=== PATIENT | male | born 1945 | race Caucasian/White ===

== ENCOUNTER → 2016-08-31 | Outpatient (REF) | payer OTHER | LOC: M SFHCPLAZ 13:30 | PROVIDERS: ATTEND Internal Medicine Infectious Disease | DX: B20 Human immunodeficiency virus [HIV] disease (principal); E78.00 Pure hypercholesterolemia, unspecified; N40.1 Benign prostatic hyperplasia with lower urinary tract symptoms ==

== ENCOUNTER 2017-02-07 14:19 | Inpatient (IN) | payer MEDICARE, OTHER ==
[~2017-02-07] VITALS: Ht 172.7 cm; Wt 123.8 kg
[2017-02-07] MEDS ORDERED: GABA-282 PO (14:58)
[2017-02-07] MEDS ORDERED: LISI-542 PO (14:58)
[2017-02-07] MEDS ORDERED: ATEN25TA PO (14:58)
[2017-02-07] MEDS ORDERED: ATOR40TA75 PO (14:58)
[2017-02-07] MEDS ORDERED: ALBU17IN INH (14:58)
[2017-02-07] MEDS ORDERED: ATRIPLA PO (14:58)
[2017-02-07] MEDS ORDERED: TAMSULOSIN (14:58)
[2017-02-07] MEDS ORDERED: ACET30TAB PO (14:58)
[2017-02-07] MEDS ORDERED: SPIR25TA2 PO (14:58)
[2017-02-07] MEDS ORDERED: ASPI325T24 PO (14:58)
[2017-02-07] MEDS ORDERED: ATRIPLA (14:58)
[2017-02-07] MEDS ORDERED: NORCO, ANEXSIA 5/325MG TABLET (HYDROcodone/ACETAMINOPHEN) PO ONE (18:30)
[2017-02-07] MEDS ORDERED: METHOCARBAMOL 500 MG TAB PO ONE (18:30)
[2017-02-07 19:11] LABS: BASO # 0.1 10^3/uL (0.0-0.2); BASO % 0.6 % (0.0-1.0); EOS # 0.1 10^3/uL (0.0-0.50); EOS % 0.9 % (0.0-3.0); IMMATURE GRANULOCYTE % 0.8 % (0-0); LYMPH # 1.5 10^3/uL (1.5-4.5); LYMPH % 14.1 % (24.0-44.0); MEAN CORPUSCULAR HEMOGLOBIN 30.2 pg (27.0-33.0); MEAN CORPUSCULAR HGB CONC 33.3 g/dl (32.0-36.5); MEAN CORPUSCULAR VOLUME 90.7 fl (80.0-96.0); MONO % 9.5 % (0.0-5.0); NEUTROPHILS # 7.6 10^3/uL (1.8-7.7); NEUTROPHILS % 74.1 % (36.0-66.0); PLATELET COUNT, AUTOMATED 202 10^3/uL (150-450); RED CELL DISTRIBUTION WIDTH 14.6 % (11.5-14.5); WHITE BLOOD COUNT 10.3 10^3/uL (4.0-10.0)
[2017-02-07 19:12] LABS: ADD MORPHOLOGY? NO
[2017-02-07 19:41] LABS: ALBUMIN 4.1 GM/DL (3.2-5.2); ALBUMIN/GLOBULIN RATIO 0.93 (1.00-1.93); BILIRUBIN,DIRECT 0.4 MG/DL (0.0-0.2); BILIRUBIN,TOTAL 1.2 MG/DL (0.2-1.0); CALCIUM LEVEL 9.4 MG/DL (8.8-10.2); CREATININE FOR GFR 1.69 MG/DL (0.70-1.30); GLOMERULAR FILTRATION RATE 42.6 (>42); TOTAL PROTEIN 8.5 GM/DL (6.4-8.2)
--- NOTE | 2017-02-07 20:30 | REPUSA ---
CLINICAL HISTORY: Lumbar pain. TECHNIQUE: Multiple axial, coronal, sagittal CT images were obtained through the lumbar spine withou t IV contrast material. COMMENTS: The paraspinal soft tissues are unremarkable. There are no lytic or blastic lesions. There is grade-1 anterolisthesis of L5 over S1 measures 5 mm. There is severe multilevel spondylosis present involving all lumbar levels. Vacuum disc phenomenon is noted at L2-L3, L3-L4 and L5-S1. An terior and posterior marginal osteophytosis is seen. Dextroscoliosis is noted apex at L1-L2. There is grade-1 retrolisthesis of L3 over L4 measures 5 mm. There are multiple bilateral renal cysts pres ent, the largest located in the lower pole of the left kidney measuring 5 cm. There is a 3.5 mm calc ulus noted in the superior pole of the left kidney. The patient is status post cholecystectomy. Marija luation of individual levels present the following: L5-S1, broad based herniated disc noted with spurring. There is severe bilateral foraminal stenosis. Compression of bilateral L5 nerve roots. Canal is mildly to moderately stenotic. L4-L5, broad based disc osteophyte complex is present. There is moderate to severe bilateral foramin al stenosis and mild central canal stenosis. Hypertrophic facet disease and ligamentum flavum hypert rophy contribute. L3-L4, broad based disc osteophyte complex is noted. There is severe bilateral foraminal stenosis. There is compression of bilateral L3 nerve roots. L2-L3, broad based disc osteophyte complex is noted. There is severe bilateral foraminal stenosis. There is compression of bilateral L2 nerve roots. L1-L2, disc osteophyte complex is present. Both foramina are narrowed. IMPRESSION: 1. Grade-1 anterolisthesis of L5 over S1 measures 5 mm. 2. Advanced multilevel spondylosis. 3. Grade-1 retrolisthesis of L3 over L4 measures 5 mm. 4. Multiple bilateral renal cysts. 5. 3.5 mm calculus in the superior pole of the left kidney. 6. Status post cholecystectomy. 7. L5-S1, broad based herniated disc noted with spurring. Severe bilateral foraminal stenosis. Com pression of bilateral L5 nerve roots. Canal is mildly to moderately stenotic. 8. L4-L5, broad based disc osteophyte complex. Moderate to severe bilateral foraminal stenosis and mild central canal stenosis. Hypertrophic facet disease and ligamentum flavum hypertrophy contribute . 9. L3-L4, broad based disc osteophyte complex. Severe bilateral foraminal stenosis. Compression of bilateral L3 nerve roots. 10. L2-L3, broad based disc osteophyte complex. Severe bilateral foraminal stenosis. Compression o f bilateral L2 nerve roots. 11. L1-L2, disc osteophyte complex. Both foramina are narrowed.
[2017-02-07] MEDS ORDERED: CO-QCAP PO (21:51)
[2017-02-07] MEDS ORDERED: FLOM5CAP PO (21:51)
[2017-02-07] MEDS ORDERED: VITMTA PO (21:51)
[2017-02-07] MEDS ORDERED: SYMB16INH INH (21:51)
[2017-02-07] MEDS ORDERED: PATIENT COMMENT (21:52)
[2017-02-08] MEDS ORDERED: ONDANSETRON 4 MG TAB (S0181) PO PRN (00:30)
[2017-02-08] MEDS ORDERED: ALBUTEROL 90 MCG/ACT 8GM HFA INHALER INH PRN (00:30)
--- NOTE | 2017-02-08 01:02 | HPEPDOC ---
General Date of Admission 02-08-17 Primary Care Physician: Becka Lord MD Attending Physician: RAYMOND SHOEMAKER MD Chief Complaint The patient is a 71-year-old male admitted with a reason for visit of Back Pain. Source: Patient Exam Limitations: No limitations Timing/Duration: Day(s) (3-4) Severity: Moderate History of Present Illness 71 y/o male with past medical history of [place] x2 in the with cardiac cath but no stent placement as per pt., CABG in 2011, HIV followed by local ID, HTN, peripheral nephropathy and heart failure as per pt. who presents today with a 3 day history of severe low back and left hip/thigh pain, 11 on pain scale, worsened with ambulation. The pt. states he has not had any recent trauma to account for the pain and states it developed quickly, although he states he has had it in the past about one year prior. Denies incontinence of urine or bowel nor numbness in his groin area, no headche or blurred vision and no dizzyness, denies SOB, CP or racing heart. No abdominal pain or n/v either. He states he contracted HIV through sexual contact, denies alcohol or drug use. He also tells me he has chronic numbness in his feet b/l and thinks he was prescribed gabapentin for this. Home Medications Scheduled (Co-Q 10 [place]-3 Fish Oil) 1 Cap Cap, 1 CAP PO QHS, (Reported) Aspirin (Aspirin EC) 325 Mg Tabec, 325 MG PO DAILY, (Reported) Atenolol (Atenolol) 25 Mg Tab, 25 MG PO DAILY, (Reported) Atorvastatin Calcium (Atorvastatin Calcium) 40 Mg Tab, 40 MG PO QHS, (Reported) Budesonide/Formoterol (Symbicort 160-4.5 Mcg/Act) 60 Puff/Inhaler Aers, 2 PUFF INH BID, (Reported) Efavirenz/Emtricitabine/Tenofi (Atripla 600-200-300 mg) 1 Tab Tab, 1 TAB PO QHS, (Reported) Gabapentin (Gabapentin) 300 Mg Cap, 300 MG PO TID, (Reported) Lisinopril (Lisinopril) 5 Mg Tab, 5 MG PO DAILY, (Reported) Multivitamins *[facility] STOCKED* (Thera M Plus *[facility] STOCKED*) 1 Tab Tab, 1 TAB PO DAILY, (Reported) Spironolactone (Spironolactone) 25 Mg Tab, 12.5 MG PO DAILY, (Reported) Tamsulosin Hydrochloride (Flomax) 0.4 Mg Cap, 0.4 MG PO DAILY, (Reported) Scheduled PRN Acetaminophen/Codeine (Tylenol/Codeine #3) Tab, 1 TAB PO BID PRN for PAIN, ( Reported) WAS TOLD TO STOP TAKING Albuterol Sulfate (Ventolin Hfa) 200 Puff/8 Gm Aers, 2 PUFF INH Q4H PRN for SHORTNESS OF BREATH, (Reported) Miscellaneous Medications [Patient Comment] , (Reported) ONLY MEDICATIONS TAKEN TODAY WAS GABAPENTIN AND TYLENOL #3. THE REST OF THE ORAL MEDICATIONS HAVEN'T BEEN TAKEN IN 4 DAYS. Allergies Coded Allergies: No Known Drug Allergy (Verified Allergy, Unknown, 08/07/12) Past Medical History Medical History HIV COPD HTN Heart failure [place] x2 in , cardiac cath. CABG SANTOS Surgical History appendectomy cabg cholecystectomy Family History Significant Family History: No pertinent family hx Social History * Smoker: former Smoker Alcohol: Denies Drugs: denies Review of Symptoms Constitutional: Reports: Malaise, Weakness, Fatigue, Denies: Chills, Fever, Night Sweats, Weight Loss Eyes: Denies: Pain, Vision change ENT: Denies: Head Aches Skin: Denies: Rash, Lesions Pulmonary: Denies: Dyspnea, Cough, Pleuritic Chest Pain Cardiovascular: Denies: Chest Pain, Palpitations Gastrointestinal: Denies: Nausea, Vomiting, Abdominal Pain, Diarrhea, Constipation, Melena, Hematochezia Genitourinary: Denies: Dysuria Hematologic: Denies: Bruising Musculoskeletal: Reports: Back Pain, Leg Pain (left hip and anterior thigh) Neurological: Reports: Weakness, Numbness, Denies: Incoordination, Change in speech, Confusion Psych: Reports: Mood Normal Physical Examination General Exam: Positive: Alert, Cooperative, No Acute Distress Eye Exam: Positive: Conjunctiva & lids normal, EOMI, Negative: Sclera icteric, Ptosis ENT Exam: Positive: Atraumatic, Mucous membr. moist/pink, Pharynx Normal, Tongue Midline, Nares Patent, Negative: Pharyngeal Edema Neck Exam: Positive: Supple Chest Exam: Positive: Clear to auscultation, Diminished, Negative: Rales, Rhonchi, Wheezing Heart Exam: Positive: Rate Normal, Normal S1, Normal S2, Negative: Tachycardic, Bradycardic, Gallops, Murmurs, Rubs Telemetry: Positive: No significant arrhythmia Abdomen Exam: Positive: Normal bowel sounds, Soft, Other (umbilical hernia), Negative: Tenderness, Hepatospenomegaly, Mass Extremity Exam: Positive: Other (middle low back pain), Negative: Clubbing, Cyanosis, Edema Neuro Exam: Positive: Normal Speech Psych Exam: Positive: Mental status NL Vital Signs Vital Signs Date Time Temp Pulse Resp B/P (MAP) Pulse Ox O2 Delivery O2 Flow Rate FiO2 02/07/17 21:22 98.8 82 18 128/84 (99) 96 Room Air Laboratory Data Labs 24H Laboratory Tests 2 02/07/17 18:52: Immature Granulocyte % (Auto) 0.8H, White Blood Count 10.3H, Red Blood Count 5.07, Hemoglobin 15.3, Hematocrit 46.0, Mean Corpuscular Volume 90.7, Mean Corpuscular Hemoglobin 30.2, Mean Corpuscular Hemoglobin Concent 33.3, Red Cell Distribution Width 14.6H, Platelet Count 202, Neutrophils (%) (Auto) 74.1H, Lymphocytes (%) (Auto) 14.1L, Monocytes (%) (Auto) 9.5H, Eosinophils (%) (Auto) 0.9, Basophils (%) (Auto) 0.6, Neutrophils # (Auto) 7.6, Lymphocytes # (Auto) 1.5, Monocytes # (Auto) 1.0H, Eosinophils # (Auto) 0.1, Basophils # (Auto) 0.1, Immature Granulocyte # (Auto) 0.1H, Nucleated Red Blood Cells % (auto) 0.0, Anion Gap 10, Glomerular Filtration Rate 42.6, Calcium Level 9.4, Aspartate Amino Transf (AST/SGOT) 50H, Alanine Aminotransferase (ALT/SGPT) 56, Alkaline Phosphatase 142H, Total Bilirubin 1.2H, Direct Bilirubin 0.4H, Total Protein 8.5H, Albumin 4.1, Albumin/Globulin Ratio 0.93L CBC/BMP Laboratory Tests 02/07/17 18:52 Red Blood Count 5.07, Mean Corpuscular Volume 90.7, Mean Corpuscular Hemoglobin 30.2, Mean Corpuscular Hemoglobin Concent 33.3, Red Cell Distribution Width 14.6 H, Neutrophils (%) (Auto) 74.1 H, Lymphocytes (%) (Auto) 14.1 L, Monocytes (%) (Auto) 9.5 H, Eosinophils (%) (Auto) 0.9, Basophils (%) (Auto) 0.6, Neutrophils # (Auto) 7.6, Lymphocytes # (Auto) 1.5, Monocytes # (Auto) 1.0 H, Eosinophils # (Auto) 0.1, Basophils # (Auto) 0.1 Problems (1) Intractable low back pain Status: Acute Response to Treatment: Stable Problem Text: lumbar CT showed IMPRESSION: 1. Grade-1 anterolisthesis of L5 over S1 measures 5 mm. 2. Advanced multilevel spondylosis. 3. Grade-1 retrolisthesis of L3 over L4 measures 5 mm. 4. Multiple bilateral renal cysts. 5. 3.5 mm calculus in the superior pole of the left kidney. 6. Status post cholecystectomy. 7. L5-S1, broad based herniated disc noted with spurring. Severe bilateral foraminal stenosis. Compression of bilateral L5 nerve roots. Canal is mildly to moderately stenotic. 8. L4-L5, broad based disc osteophyte complex. Moderate to severe bilateral foraminal stenosis and mild central canal stenosis. Hypertrophic facet disease and ligamentum flavum hypertrophy contribute. 9. L3-L4, broad based disc osteophyte complex. Severe bilateral foraminal stenosis. Compression of bilateral L3 nerve roots. 10. L2-L3, broad based disc osteophyte complex. Severe bilateral foraminal stenosis. Compression of bilateral L2 nerve roots. 11. L1-L2, disc osteophyte complex. Both foramina are narrowed. MRI without contrast ( in light of JUDAH) is pending will give morphine for pain and likely ortho followup outpt with pain control zofran for n/v (2) Kidney stone Status: Acute Response to Treatment: Stable Problem Text: CT lumbar spine demonstrated 3.5 mm calculus in the superior pole of the left kidney. pt denies pain with urination or blood in urine can consider consulting urology in AM, will leave to discretion of daytime HCP will give gentle fluid hydration and morphine for pain (3) Heart failure Status: Chronic Response to Treatment: Stable Problem Text: cannot seem to find ECHO on file ordered BNP will give gentle fluid hydration and stop if BNP is elevated euvolemic holding diuretic for now (4) HIV (human immunodeficiency virus infection) Status: Chronic Response to Treatment: Stable Problem Text: will continue with home med (5) HTN (hypertension) Status: Chronic Response to Treatment: Stable Problem Text: stable will hold diuretic at this time (6) JUDAH (acute kidney injury) Status: Acute Response to Treatment: Stable Problem Text: seems creatine elevated from baseline 3.5 mm calculus in the superior pole of the left kidney. fluid hydration and pain control (7) COPD (chronic obstructive pulmonary disease) Status: Chronic Response to Treatment: Stable Problem Text: stable c/w home inhalers (8) DVT prophylaxis Status: Acute Response to Treatment: Stable Problem Text: scd teds Plan / VTE VTE Prophylaxis Ordered?: Yes GME ATTESTATION GME ATTESTATION My preceptor for this patient encounter was physically present in the building during the encounter and was fully available. As needed, all aspects of the patient interview, examination, medical decision making process, and medical care plan development were reviewed and approved by the preceptor. Preceptor is aware and concurs with the plan as stated in the body of this note and will attest to such by his/her cosignature. JEANA GOMEZ DO Feb 08, 2017 01:01 THAIS DECKER MD Feb 08, 2017 08:10
[2017-02-08] MEDS: ATORVASTATIN 20 MG TAB PO SCH ×2 (01:32→21:24)
[2017-02-08] MEDS: GABAPENTIN 300 MG CAP PO SCH ×4 (01:32→21:24)
[2017-02-08] MEDS: ATRIPLA TAB PO SCH ×2 (01:32→21:24)
[2017-02-08 02:15] VITALS: BP 143/82
[2017-02-08] MEDS: NS 1,000 ML IV SCH ×3 (02:30→16:46)
[2017-02-08 06:00] VITALS: BP 137/71
[2017-02-08] MEDS: SYMBICORT 160/4.5MCG INHALER 6GM INH SCH ×2 (07:30→18:47)
[2017-02-08] MEDS ORDERED: ASPIRIN ENTERIC 325 MG TAB PO SCH (09:00)
[2017-02-08] MEDS ORDERED: SENOKOT S TAB PO PRN (09:30)
[2017-02-08] MEDS ORDERED: PERCOCET 5MG/325MG TAB PO PRN (09:30)
[2017-02-08] MEDS ORDERED: MOM 30ML SUSPENSION UDC PO PRN (09:30)
[2017-02-08] MEDS ORDERED: PERCOCET 5MG/325MG TAB PO ONE (09:30)
[2017-02-08] MEDS ORDERED: NALOXONE INJ 0.4 MG/1 ML VIAL (J2310) IV PRN (09:30)
[2017-02-08] MEDS: LISINOPRIL 5 MG TAB PO SCH (09:38)
[2017-02-08] MEDS: TAMSULOSIN 0.4 MG CAP PO SCH (09:40)
[2017-02-08] MEDS: MULTIVITAMINS/MINERALS THERAP 1 TAB PO SCH (09:41)
[2017-02-08] MEDS: ATENOLOL 25 MG TAB PO SCH (09:41)
[2017-02-08] MEDS: PERCOCET 5MG/325MG TAB PO PRN ×2 (13:12→21:25)
[2017-02-08 14:00] VITALS: BP 134/68
--- NOTE | 2017-02-08 17:01 | CR ---
DATE OF CONSULTATION: 02/08/2017 CONSULTATION REPORT FOR: Dr. Mile Brar CHIEF COMPLAINT: Low back pain and right leg pain. HISTORY OF PRESENT ILLNESS: Sanju is a 71-year-old gentleman admitted yesterday for severe low back and right leg pain and paresthesia. He was comfortable when I visited this afternoon, rating his pain level as a 2/10. This was an hour after receiving two Percocet 5/325. Reports a long history of intermittent low back pain and bilateral leg pain, although he states that he never really had to doctor for severe pain symptoms down his right leg as he is experiencing as of recent. Denies precipitating event. His pain is aggravated by movement. Denies bowel or bladder incontinence. ALLERGIES: No known drug allergies. PAST MEDICAL HISTORY: 1. HIV. 2. Chronic obstructive pulmonary disease (COPD). 3. Hypertension. 4. Heart failure. 5. Myocardial infarction (AR) times two in with cardiac catheterization. 6. Obstructive sleep apnea (SANTOS). PAST SURGICAL HISTORY: 1. Appendectomy. 2. Coronary artery bypass graft (CABG). 3. Cholecystectomy. FAMILY HISTORY: No pertinent family history. SOCIAL HISTORY: Former smoker. Denies alcohol use. Denies drug use. The patient lives alone. Contacts are limited. REVIEW OF SYSTEMS: 11-point review of systems is negative except for as mentioned in the history of present illness (HPI). PHYSICAL EXAMINATION: Awake, alert, talkative, in no acute distress. CARDIAC: S1, S2. Normal rate and rhythm. ABDOMEN: Protuberant, nontender. Obvious umbilical hernia. NEUROMUSCULAR EXAMINATION: Muscle strength testing over right leg is 3/5, left leg 5/5. Muscle strength testing upper extremities is 5/5. Reporting normal sensation to light touch lower extremities. INSPECTION OF SPINE: Nontender with palpation over lumbosacral (LS) axis or lumbar paraspinals. No specific sacroiliac joint (SIJ) tenderness. DIAGNOSTIC DATA: Lumbar CT showing grade 1 anterior listhesis of L5-S1 5 mm. Advanced multilevel spondylosis. L5-S1 broad-based herniated disc noted with spurring. Severe bilateral foraminal stenosis. Compression of bilateral L5 nerve roots. L4-5 broad-based disc osteophyte complex. Moderate to severe bilateral foraminal stenosis and mild central canal stenosis. Severe foraminal stenosis also noted at L2-3 and L3-4 with compression of bilateral L2 and L3 nerve roots noted. ASSESSMENT: 1. Acute low back pain. 2. Lumbar radiculopathy. 3. Lumbar disc displacement. PLAN: I would advise to continue Percocet 5/325 two tablets as needed for moderate pain. Continue offering 2 mg of morphine IV for severe pain episodes. Consider adding muscle relaxant three times a day, ie Soma 350 mg three times a day. Discussed epidural steroid injection. The patient is reluctant after we discussed the potential risks for infection, of which he would be at high risk due to medication regimen. He actually is refusing surgical intervention. He is asking for a muscle relaxant like he received in the emergency room (ER) that was helpful and he would like to attend rehabilitation. Thank you for allowing us to participate in the care of your patient. If you have any questions or concerns, please do not hesitate to contact us. NISHANT
[2017-02-08 22:00] VITALS: BP 134/62
[2017-02-09] MEDS: NS 1,000 ML IV SCH ×3 (02:54→18:36)
[2017-02-09] MEDS: PERCOCET 5MG/325MG TAB PO PRN (05:14)
[2017-02-09 06:00] VITALS: BP 148/68
[2017-02-09] MEDS: SYMBICORT 160/4.5MCG INHALER 6GM INH SCH ×2 (06:33→20:09)
[2017-02-09] MEDS ORDERED: PERCOCET 5MG/325MG TAB PO ONE (07:00)
[2017-02-09 07:11] LABS: BASO # 0.1 10^3/uL (0.0-0.2); BASO % 0.8 % (0.0-1.0); EOS # 0.2 10^3/uL (0.0-0.50); EOS % 2.4 % (0.0-3.0); IMMATURE GRANULOCYTE % 0.6 % (0-0); LYMPH # 1.2 10^3/uL (1.5-4.5); LYMPH % 19.2 % (24.0-44.0); MEAN CORPUSCULAR HEMOGLOBIN 29.8 pg (27.0-33.0); MEAN CORPUSCULAR VOLUME 93.1 fl (80.0-96.0); MONO # 0.6 10^3/uL (0.0-0.8); MONO % 9.8 % (0.0-5.0); NEUTROPHILS # 4.2 10^3/uL (1.8-7.7); NEUTROPHILS % 67.2 % (36.0-66.0); PLATELET COUNT, AUTOMATED 132 10^3/uL (150-450); RED CELL DISTRIBUTION WIDTH 14.8 % (11.5-14.5); WHITE BLOOD COUNT 6.2 10^3/uL (4.0-10.0)
--- NOTE | 2017-02-09 07:55 | REP ---
Portable chest, 06:49 a.m., single AP view, the patient upright: Comparison is 08/27/2009. There is chronic cardiomegaly, unchanged. There is focal increased radiodensity inferiorly in the left lung compatible with effusion/infiltrate, not present previously. The right lung is clear. There are sternotomy wires as an interval change. Signed by Aaron Hernandez MD 02/09/2017 07:47 A
[2017-02-09] MEDS ORDERED: CARISOPRODOL 350 MG TAB PO ONE (08:00)
[2017-02-09] MEDS: ASPIRIN 325 MG TAB PO SCH (08:05)
[2017-02-09] MEDS: LISINOPRIL 5 MG TAB PO SCH (08:07)
[2017-02-09] MEDS: ATENOLOL 25 MG TAB PO SCH (08:07)
[2017-02-09] MEDS: GABAPENTIN 300 MG CAP PO SCH ×3 (08:07→20:30)
[2017-02-09 08:08] LABS: ANION GAP 5 MEQ/L (8-16); BLOOD UREA NITROGEN 27 MG/DL (7-18); CALCIUM LEVEL 8.3 MG/DL (8.8-10.2); CARBON DIOXIDE LEVEL 27 MEQ/L (21-32); CHLORIDE LEVEL 112 MEQ/L (98-107); CREATININE FOR GFR 1.12 MG/DL (0.70-1.30); GLOMERULAR FILTRATION RATE > 60.0 (>42); GLUCOSE, FASTING 115 MG/DL (83-110); POTASSIUM SERUM 4.4 MEQ/L (3.5-5.1); SODIUM LEVEL 144 MEQ/L (136-145)
[2017-02-09] MEDS: SENOKOT S TAB PO SCH ×2 (08:08→20:31)
[2017-02-09] MEDS: MULTIVITAMINS/MINERALS THERAP 1 TAB PO SCH (08:08)
[2017-02-09] MEDS: TAMSULOSIN 0.4 MG CAP PO SCH (08:09)
[2017-02-09] MEDS: LIDOCAINE 5% OINT 30 GM TOP SCH ×3 (08:19→20:32)
[2017-02-09] MEDS ORDERED: INFLUENZA VIRUS VACCINE HIGH DOSE 0.5 ML SYRINGE (90662) IM ONE (09:00)
--- NOTE | 2017-02-09 10:35 | IPN ---
DATE OF SERVICE: 02/09/2017 SUBJECTIVE: Patient seen and examined at the bedside. Chart has been reviewed. The patient still complains of radicular pain from the back radiating down the right thigh into behind the right knee. Described as sharp and alleviated with Robaxin and [place] given in the emergency room (ER) yesterday. Temperature 97.1, pulse 72, respiratory rate 18, blood pressure 148/68 and 98% on room air. Generally, awake, alert and oriented times three, answering questions appropriately. Lungs are clear to auscultation. No wheezing, rales or rhonchi. Heart: S1, S2, sinus rhythm. Abdomen is soft, nontender, nondistended. Positive bowel sounds. Reducible umbilical hernia. Extremities: 5/5 muscle strength in the bilateral upper extremities, right lower extremity 3/5 strength, left lower extremity is 5/5 strength. Tenderness around the lumbar area L3-L4. LABORATORY DATA, IMAGING STUDIES AND MICROBIOLOGY: Have been reviewed. ASSESSMENT AND PLAN: This is a 71-year-old male with history of human immunodeficiency virus (HIV), chronic obstructive pulmonary disease (COPD), hypertension, heart failure, myocardial infarction (NM) times two in 1989, obstructive sleep apnea on CPAP, coronary artery bypass graft (CABG), appendectomy, cholecystectomy, probable metabolic syndrome, and body mass index (BMI) of 39 with history of obesity who presents with intractable lumbar radiculopathy. CURRENT ISSUES: 1. Intractable lumbar radiculopathy with worsening acute low back pain. The patient states that the Robaxin and [place] helped in the emergency room. Therefore, we will resume twice a day dose of [place] and Robaxin twice a day dose and as needed IV morphine. Physical therapy (PT) to clear the patient home. Appreciate pain management consult and referral of pain management. 2. HIV. Continue on Efavirenz/Atripla. 3. Neuropathy. Continue on Neurontin 300 three times a day. 4. Hypertension. Continue on lisinopril. 5. Benign prostatic hypertrophy (BPH). Continue on Flomax. 6. Obstructive sleep apnea. Continue on CPAP. 7. History of coronary artery disease (CAD) and CABG. Continue on aspirin, atenolol, lisinopril. The patient is not on atorvastatin. DISPOSITION: Change to inpatient. PT clearance prior to discharge home.
--- NOTE | 2017-02-09 11:42 | REP ---
MRI LUMBAR SPINE WITHOUT CONTRAST: HISTORY: Back pain. COMPARISON: CT 02/07/2017. Decreased signal intensity on T2-weighted images is present in the lumbar intervertebral discs. The discs are decreased in height. These findings are consistent with disc degeneration. A diffuse disc bulge is present at the L1-2 level. There is minimal compression of the thecal sac. There is hypertrophy of the posterior articulating facets. The L1 nerves exit the neural foramina without compression. A diffuse disc bulge and mild size right paracentral disc extrusion are present at the L2-3 level. There is inferior migration of disc material. There is mild compression of the thecal sac and right L3 nerve as it exits the thecal sac and in the right L3 lateral recess. There is hypertrophy of the posterior articulating facets. The L2 nerves exit the neural foramina without compression. A diffuse disc bulge and small central disc extrusion are present at the L3-4 level. There is inferior migration of disc material. There is minimal compression of the thecal sac. There is hypertrophy of the posterior articulating facets. The L3 nerves exit the neural foramina without compression. A diffuse disc bulge is present at the L4-5 level. There is minimal compression of the thecal sac. There is hypertrophy of the posterior articulating facets. The L4 nerves exit the neural foramina without compression. A diffuse disc bulge is present at the L5-S1 level. There is minimal compression of the thecal sac. There is hypertrophy of the posterior articulating facets. There are 4 mm of grade 1 spondylolisthesis of L5 on S1. There is compression of the L5 nerves in the neural foramina. The conus medullaris is normal in appearance terminating at the level of the T12-L1 intervertebral disc. A hemangioma is present in the L1 vertebral body. Increased signal intensity on T2-weighted images is present in the end plates of the L3-S1 vertebral bodies. This represents degenerative change. IMPRESSION: 1. Diffuse disc bulges at the L1-2 and L4-5 levels with minimal thecal sac compression. 2. Diffuse disc bulge and mild size disc extrusion at the L2-3 level with mild compression of the thecal sac and right L3 nerve as it exits the thecal sac and in the right L3 lateral recess. 3. Diffuse disc bulge and small central disc extrusion at the L3-4 level with minimal thecal sac compression. 4. Diffuse disc bulge at the L5-S1 level with minimal thecal sac compression. There is grade 1 spondylolisthesis of L5 on S1. There is compression of the L5 nerves in the neural foramina. Signed by Chevy Pires MD 02/09/2017 11:48 A
[2017-02-09] MEDS ORDERED: ANEXSIA, NORCO 7.5MG/325MG TABLET(HYDROCODONE/APAP) PO ONE (12:00)
[2017-02-09] MEDS ORDERED: METHOCARBAMOL 500 MG TAB PO ONE (12:00)
[2017-02-09 14:00] VITALS: BP 143/85
[2017-02-09] MEDS: ANEXSIA, NORCO 7.5MG/325MG TABLET(HYDROCODONE/APAP) PO SCH (20:30)
[2017-02-09] MEDS: ATRIPLA PO SCH (20:31)
[2017-02-09] MEDS: ATORVASTATIN 20 MG TAB PO SCH (20:31)
[2017-02-09] MEDS: METHOCARBAMOL 500 MG TAB PO SCH (20:31)
[2017-02-09] MEDS ORDERED: PERCOCET 5MG/325MG TAB PO SCH (21:00)
[2017-02-09 22:00] VITALS: BP 138/72
[2017-02-10] MEDS: NS 1,000 ML IV SCH (01:29)
[2017-02-10] MEDS: MORPHINE 2 MG/ML 1ML SYRINGE IV PRN (05:40)
[2017-02-10 06:00] VITALS: BP 133/64
[2017-02-10 06:25] LABS: BASO # 0.1 10^3/uL (0.0-0.2); BASO % 0.8 % (0.0-1.0); EOS # 0.2 10^3/uL (0.0-0.50); IMMATURE GRANULOCYTE % 0.8 % (0-0); LYMPH # 1.1 10^3/uL (1.5-4.5); LYMPH % 16.2 % (24.0-44.0); MEAN CORPUSCULAR HEMOGLOBIN 30.2 pg (27.0-33.0); MEAN CORPUSCULAR HGB CONC 31.9 g/dl (32.0-36.5); MEAN CORPUSCULAR VOLUME 94.4 fl (80.0-96.0); MONO # 0.7 10^3/uL (0.0-0.8); MONO % 10.7 % (0.0-5.0); NEUTROPHILS # 4.5 10^3/uL (1.8-7.7); NEUTROPHILS % 68.5 % (36.0-66.0); PLATELET COUNT, AUTOMATED 122 10^3/uL (150-450); RED CELL DISTRIBUTION WIDTH 14.9 % (11.5-14.5); WHITE BLOOD COUNT 6.6 10^3/uL (4.0-10.0)
[2017-02-10] MEDS ORDERED: METHOCARBAMOL 500 MG TAB PO ONE (06:30)
[2017-02-10] MEDS ORDERED: NORCO, ANEXSIA 5/325MG TABLET (HYDROcodone/ACETAMINOPHEN) PO ONE (06:30)
[2017-02-10 06:48] LABS: ANION GAP 6 MEQ/L (8-16); BLOOD UREA NITROGEN 19 MG/DL (7-18); CALCIUM LEVEL 7.7 MG/DL (8.8-10.2); CARBON DIOXIDE LEVEL 25 MEQ/L (21-32); CHLORIDE LEVEL 114 MEQ/L (98-107); CREATININE FOR GFR 0.93 MG/DL (0.70-1.30); GLOMERULAR FILTRATION RATE > 60.0 (>42); GLUCOSE, FASTING 107 MG/DL (83-110); SODIUM LEVEL 145 MEQ/L (136-145)
[2017-02-10] MEDS: SYMBICORT 160/4.5MCG INHALER 6GM INH SCH ×2 (07:14→19:26)
[2017-02-10] MEDS: LIDOCAINE 5% OINT 30 GM TOP SCH ×3 (09:00→21:29)
--- NOTE | 2017-02-10 09:32 | REP ---
REASON: Dyspnea. PRIORS: Yesterday. The technique utilized in obtaining the radiograph has magnified the cardiac silhouette and accentuated the interstitial markings. Cardiomediastinal silhouette and lung mittal are unchanged. IMPRESSION: No significant change from yesterday. There is cardiomegaly and a suspected left lower lobe opacity difficult to evaluate on this single limited frontal portable exam. Signed by Abdullahi Hadley DO 02/10/2017 09:39 A
[2017-02-10] MEDS: LISINOPRIL 5 MG TAB PO SCH (09:53)
[2017-02-10] MEDS: GABAPENTIN 300 MG CAP PO SCH ×3 (09:54→21:28)
[2017-02-10] MEDS: ASPIRIN 325 MG TAB PO SCH (09:54)
[2017-02-10] MEDS: MULTIVITAMINS/MINERALS THERAP 1 TAB PO SCH (09:54)
[2017-02-10] MEDS: METHOCARBAMOL 500 MG TAB PO SCH ×2 (09:54→21:27)
[2017-02-10] MEDS: TAMSULOSIN 0.4 MG CAP PO SCH (09:55)
[2017-02-10] MEDS: SENOKOT S TAB PO SCH ×2 (09:55→21:28)
[2017-02-10] MEDS: ATENOLOL 25 MG TAB PO SCH (09:55)
[2017-02-10] MEDS: ANEXSIA, NORCO 7.5MG/325MG TABLET(HYDROCODONE/APAP) PO SCH ×2 (09:56→21:27)
[2017-02-10 14:00] VITALS: BP 150/79
--- NOTE | 2017-02-10 15:40 | IPN ---
DATE: 02/10/2017 SUBJECTIVE: The patient is seen and examined at bedside. Chart has been reviewed. The patient states pain is improving but still persistent, radicular in nature from the back to the bottom part of the knee, improved with Vicodin and Robaxin. Not passed a home safety evaluation as of yet. OBJECTIVE: VITAL SIGNS: Temperature 96.2, pulse 60, respiratory rate 18, blood pressure 133/64, 96% on room air. GENERAL: The patient is awake, alert, and oriented times three, answering questions appropriately. LUNGS: Clear to auscultation. No wheezes, rales, or rhonchi. HEART: S1, S2. Sinus rhythm. ABDOMEN: Soft, obese, nontender, nondistended. Positive bowel sounds. Reducible umbilical hernia. EXTREMITIES: 5/5 strength bilateral upper extremities. Right lower extremity 3/5, left lower extremity 5/5. Tenderness around the L3-L5 area. Laboratory data, imaging studies, and microbiology have been reviewed. ASSESSMENT AND PLAN: 1. A 71-year-old male with history of HIV, chronic obstructive pulmonary disease (COPD), hypertension, myocardial infarction (MT) times two, obstructive sleep apnea (SANTOS) on continuous positive airway pressure (CPAP), coronary artery bypass graft (CABG), appendectomy, cholecystectomy, metabolic syndrome, body mass index (BMI) of 39, obesity with intractable lumbar radiculopathy, pernicious intractable lumbar radiculopathy with worsening acute low back pain. The patient states and Robaxin and [place] helped him in the emergency room. Will resume twice a day dosing of Robaxin and [place], with as needed doses throughout the day, as well as as-needed intravenous (IV) morphine. Physical therapy (PT) to clear patient prior to discharge. Appreciate pain management consult. 2. HIV on Atripla. May continue home dose. 3. Neuropathy on Neurontin. 4. Hypertension, stable on lisinopril. 5. Benign prostatic hypertrophy (BPH) on Flomax. 6. Obstructive sleep apnea on CPAP and supplemental oxygen. 7. Coronary artery disease (CAD)/coronary artery bypass graft (CABG) on aspirin, atenolol and lisinopril.
[2017-02-10] MEDS: ATRIPLA PO SCH (21:28)
[2017-02-10] MEDS: ATORVASTATIN 20 MG TAB PO SCH (21:28)
[2017-02-10 22:00] VITALS: BP 160/70
[2017-02-11] MEDS: MORPHINE 2 MG/ML 1ML SYRINGE IV PRN (02:08)
[2017-02-11 06:00] VITALS: BP 154/64
[2017-02-11 06:28] LABS: BASO % 0.4 % (0.0-1.0); EOS # 0.2 10^3/uL (0.0-0.50); EOS % 2.5 % (0.0-3.0); IMMATURE GRANULOCYTE % 0.6 % (0-0); LYMPH % 14.3 % (24.0-44.0); MEAN CORPUSCULAR HEMOGLOBIN 30.5 pg (27.0-33.0); MEAN CORPUSCULAR HGB CONC 32.3 g/dl (32.0-36.5); MEAN CORPUSCULAR VOLUME 94.4 fl (80.0-96.0); MONO # 0.6 10^3/uL (0.0-0.8); MONO % 9.1 % (0.0-5.0); NEUTROPHILS % 73.1 % (36.0-66.0); PLATELET COUNT, AUTOMATED 110 10^3/uL (150-450); RED CELL DISTRIBUTION WIDTH 14.7 % (11.5-14.5); WHITE BLOOD COUNT 6.8 10^3/uL (4.0-10.0)
[2017-02-11 06:31] LABS: ADD MANUAL DIFFER NO; DIFF SLIDE NUMBER 26
[2017-02-11 06:55] LABS: ANION GAP 4 MEQ/L (8-16); BLOOD UREA NITROGEN 18 MG/DL (7-18); CALCIUM LEVEL 8.6 MG/DL (8.8-10.2); CARBON DIOXIDE LEVEL 27 MEQ/L (21-32); CHLORIDE LEVEL 111 MEQ/L (98-107); CREATININE FOR GFR 0.92 MG/DL (0.70-1.30); GLOMERULAR FILTRATION RATE > 60.0 (>42); GLUCOSE, FASTING 104 MG/DL (83-110); POTASSIUM SERUM 4.4 MEQ/L (3.5-5.1); SODIUM LEVEL 142 MEQ/L (136-145)
[2017-02-11] MEDS ORDERED: METHOCARBAMOL 750 MG TAB PO ONE (07:15)
[2017-02-11] MEDS ORDERED: METHOCARBAMOL 500 MG TAB PO ONE (07:15)
[2017-02-11] MEDS ORDERED: ANEXSIA, NORCO 7.5MG/325MG TABLET(HYDROCODONE/APAP) PO ONE (07:15)
[2017-02-11] MEDS: SYMBICORT 160/4.5MCG INHALER 6GM INH SCH ×2 (07:25→19:42)
[2017-02-11] MEDS ORDERED: MORPHINE 2 MG/ML 1ML SYRINGE IV ONE (09:00)
[2017-02-11] MEDS: LIDOCAINE 5% OINT 30 GM TOP SCH ×3 (09:00→21:00)
[2017-02-11] MEDS: SENOKOT S TAB PO SCH ×2 (09:47→21:32)
[2017-02-11] MEDS: TAMSULOSIN 0.4 MG CAP PO SCH (09:47)
[2017-02-11] MEDS: GABAPENTIN 300 MG CAP PO SCH ×3 (09:48→21:33)
[2017-02-11] MEDS: LISINOPRIL 5 MG TAB PO SCH (09:48)
[2017-02-11] MEDS: ASPIRIN 325 MG TAB PO SCH (09:48)
[2017-02-11] MEDS: MULTIVITAMINS/MINERALS THERAP 1 TAB PO SCH (09:48)
[2017-02-11] MEDS: ATENOLOL 25 MG TAB PO SCH (09:49)
[2017-02-11] MEDS: METHOCARBAMOL 500 MG TAB PO SCH ×2 (11:02→15:09)
[2017-02-11] MEDS: ANEXSIA, NORCO 7.5MG/325MG TABLET(HYDROCODONE/APAP) PO SCH ×3 (11:02→18:08)
--- NOTE | 2017-02-11 11:43 | IPN ---
DATE: 02/11/2017 The patient seen and examined at the bedside. Chart has been reviewed. Yesterday, the patient's pain was better controlled with [place] and Robaxin scheduled. This morning at 5 a.m., the patient complained of severe pain in his teeth, leaned over to the right side trying to get out of bed to go to the bathroom. He describes the pain in the lower back radiating down the posterior aspect of his thigh on to the knee. No weakness. No urinary or bowel incontinence. No constipation. Temperature 98.5, pulse 60, respiratory rate 18, blood pressure 150/64, 96% on room air. Generally awake, alert, oriented times three. Answering questions appropriately. Lungs diminished but clear to auscultation. No wheezing or rales. Heart: S1, S2 sinus rhythm. Abdomen is obese, soft, nontender, nondistended. Reducible umbilical hernia. Extremities: Right lower extremity 3/5, transcending L3-4. No clubbing or cyanosis. Lab data, imaging and microbiology have been reviewed. ASSESSMENT/PLAN: This is a 71-year-old obese male with history of HIV, COPD, hypertension, myocardial infarction (HI) times two with CNC, paroxysmal atrial fibrillation (PAF), coronary artery bypass graft (CABG), appendectomy, cholecystectomy, metabolic syndrome, body mass index (BMI) of 39, obesity, intractable lumbar radiculopathy. IMPRESSION: 1. Lumbar radiculopathy: Currently on Robaxin and [place] awaiting physical therapy (PT) clearance prior to discharge home. Bowel regimen. Monitor for CO2 retention in light of history of organic brain syndrome. 2. HIV on Atripla. May continue home dose. 3. Neuropathy on Neurontin. 4. Hypertension, stable on lisinopril. 5. Benign prostatic hypertrophy (BPH) on Flomax. 6. Obstructive sleep apnea on CPAP and supplemental oxygen. 7. Coronary artery disease (CAD)/coronary artery bypass graft (CABG) on aspirin, atenolol and lisinopril with no acute ischemic symptoms.
[2017-02-11 14:00] VITALS: BP 160/94
[2017-02-11] MEDS: ATRIPLA PO SCH (21:31)
[2017-02-11] MEDS: ATORVASTATIN 20 MG TAB PO SCH (21:32)
[2017-02-11 22:00] VITALS: BP 144/70
[2017-02-12] MEDS: METHOCARBAMOL 500 MG TAB PO SCH ×2 (00:02→05:30)
[2017-02-12] MEDS: ANEXSIA, NORCO 7.5MG/325MG TABLET(HYDROCODONE/APAP) PO SCH ×2 (00:04→05:31)
[2017-02-12 06:00] VITALS: BP 128/72
[2017-02-12 06:08] LABS: BASO % 0.5 % (0.0-1.0); EOS # 0.2 10^3/uL (0.0-0.50); EOS % 2.1 % (0.0-3.0); IMMATURE GRANULOCYTE % 0.5 % (0-0); LYMPH # 0.9 10^3/uL (1.5-4.5); LYMPH % 11.1 % (24.0-44.0); MEAN CORPUSCULAR HEMOGLOBIN 30.6 pg (27.0-33.0); MEAN CORPUSCULAR HGB CONC 32.4 g/dl (32.0-36.5); MEAN CORPUSCULAR VOLUME 94.3 fl (80.0-96.0); MONO # 0.7 10^3/uL (0.0-0.8); MONO % 8.9 % (0.0-5.0); NEUTROPHILS # 5.9 10^3/uL (1.8-7.7); NEUTROPHILS % 76.9 % (36.0-66.0); PLATELET COUNT, AUTOMATED 125 10^3/uL (150-450); RED CELL DISTRIBUTION WIDTH 14.6 % (11.5-14.5); WHITE BLOOD COUNT 7.6 10^3/uL (4.0-10.0)
[2017-02-12 06:25] LABS: ANION GAP 8 MEQ/L (8-16); BLOOD UREA NITROGEN 15 MG/DL (7-18); CALCIUM LEVEL 8.8 MG/DL (8.8-10.2); CARBON DIOXIDE LEVEL 28 MEQ/L (21-32); CHLORIDE LEVEL 105 MEQ/L (98-107); CREATININE FOR GFR 0.94 MG/DL (0.70-1.30); GLOMERULAR FILTRATION RATE > 60.0 (>42); GLUCOSE, FASTING 112 MG/DL (83-110); SODIUM LEVEL 141 MEQ/L (136-145)
[2017-02-12] MEDS ORDERED: METHOCARBAMOL 500 MG TAB PO ONE (07:15)
[2017-02-12] MEDS ORDERED: ANEXSIA, NORCO 7.5MG/325MG TABLET(HYDROCODONE/APAP) PO ONE ×2 (07:15→16:00)
[2017-02-12] MEDS: SYMBICORT 160/4.5MCG INHALER 6GM INH SCH ×2 (07:20→20:36)
[2017-02-12 08:00] VITALS: BP 131/66
[2017-02-12] MEDS: TAMSULOSIN 0.4 MG CAP PO SCH (09:16)
[2017-02-12] MEDS: ASPIRIN 325 MG TAB PO SCH (09:16)
[2017-02-12] MEDS: LISINOPRIL 5 MG TAB PO SCH (09:16)
[2017-02-12] MEDS: MULTIVITAMINS/MINERALS THERAP 1 TAB PO SCH (09:16)
[2017-02-12] MEDS: ATENOLOL 25 MG TAB PO SCH (09:17)
[2017-02-12] MEDS: SENOKOT S TAB PO SCH ×2 (09:17→20:27)
[2017-02-12] MEDS: LIDOCAINE 5% OINT 30 GM TOP SCH ×3 (09:17→20:42)
[2017-02-12] MEDS: GABAPENTIN 300 MG CAP PO SCH ×3 (09:17→20:26)
[2017-02-12] MEDS: ENOXAPARIN 40 MG/0.4 ML SYRINGE (J1650) SC SCH (09:18)
--- NOTE | 2017-02-12 12:49 | IPN ---
DATE OF SERVICE: 02/12/2017 The patient seen and examined at the bedside. Chart has been reviewed. This morning, the patient still complains of lumbar radicular pain, improved with pain medications, but pain usually arises from midnight into housing relocation. Unable to work with physical therapy. He complains of sharp pain that radiates from his lower back down towards the lateral and posterior aspect of the thigh and to the back of the knee. He is unable to ambulate due to severe pain. He denies any urine incontinence or urine retention. Denies any constipation. No nausea or vomiting. No fever or chills. No chest pain, pressure, tightness, or shortness of breath. Tolerating his diet well. No other issues per nursing aside from pain. Temperature 99, pulse 66, respiratory rate 18, blood pressure 128/72, 94% on room air. Generally, awake, alert, oriented times three. Answering questions appropriately. No use of respiratory accessory muscles. Speaks in full sentences. Pupils are round and reactive to light and accommodation. Extraocular muscle are intact. Normocephalic, atraumatic. Anicteric sclerae. No jaundice. Tongue is midline. No oral thrush. Lungs are diminished but clear to auscultation. No wheezing, rales, or rhonchi. Heart: Distant heart sounds. S1, S2, sinus rhythm. No murmurs, rubs, or gallops. Abdomen is obese, soft, nontender, nondistended with reducible umbilical hernia. Positive bowel sounds times four quadrants. No hepatosplenomegaly. No rebound or guarding. Extremities: Right lower extremity 3/5 motor strength. Bilateral upper and lower extremities on the left are 5/5 motor strength. The patient has no sensory disturbance. No clubbing or cyanosis of the lower extremities. Laboratory data, imaging studies, and microbiology have been reviewed. ASSESSMENT AND PLAN: This is a 71-year-old obese male with body mass index (BMI ) of 39, history of HIV, follows with Dr. Becka Lord, chronic obstructive pulmonary disease (COPD), hypertension, myocardial infarction (AR), coronary artery disease (CAD) times two, paroxysmal atrial fibrillation (AFib), coronary artery bypass graft (CABG), appendectomy, cholecystectomy, obesity, metabolic syndrome, BMI of 39, was admitted for intractable lumbar radiculopathy. CURRENT ISSUES: Are as follows: 1. Lumbar radiculopathy. Currently on Robaxin and [place]. Awaiting physical therapy (PT) clearance prior to discharge home. We will provide with scheduled doses of Robaxin and [place] every 8 hours. Bowel regimen. Monitor for CO2 retention in light of history of COPD and obstructive sleep apnea. 2. HIV, on Atripla. May resume home dose of Atripla. 3. Neuropathy. On chronic Neurontin. 4. Hypertension, stable on lisinopril. 5. Benign prostatic hypertrophy (BPH). On chronic Flomax. 6. Obstructive sleep apnea. Continue with his CPAP home setting and supplemental oxygen if needed. 7. History of coronary artery disease and coronary artery bypass graft. On chronic aspirin, atenolol, and lisinopril with no complaints of acute ischemia. Denies any chest pain, pressure, tightness, shortness of breath, or exertional dyspnea. 8. Obesity, complicating medical care. 9. History of paroxysmal atrial fibrillation, currently rate controlled on atenolol. 10. Deep venous thrombosis (DVT) prophylaxis with compression stockings and Lovenox. MTDD
[2017-02-12 14:00] VITALS: BP 126/79
[2017-02-12] MEDS ORDERED: METHOCARBAMOL 750 MG TAB PO ONE (16:00)
[2017-02-12 20:25] VITALS: O2SAT 93
[2017-02-12] MEDS: ATORVASTATIN 20 MG TAB PO SCH (20:26)
[2017-02-12] MEDS: ATRIPLA PO SCH (20:27)
[2017-02-12 22:00] VITALS: BP 147/74
[2017-02-13 06:00] VITALS: BP 164/92
[2017-02-13] MEDS: SYMBICORT 160/4.5MCG INHALER 6GM INH SCH ×2 (07:06→20:02)
[2017-02-13 08:06] LABS: BASO % 0.4 % (0.0-1.0); EOS # 0.1 10^3/uL (0.0-0.50); EOS % 1.7 % (0.0-3.0); IMMATURE GRANULOCYTE % 0.8 % (0-0); LYMPH # 0.9 10^3/uL (1.5-4.5); LYMPH % 12.5 % (24.0-44.0); MEAN CORPUSCULAR HEMOGLOBIN 30.1 pg (27.0-33.0); MEAN CORPUSCULAR HGB CONC 32.3 g/dl (32.0-36.5); MEAN CORPUSCULAR VOLUME 93.2 fl (80.0-96.0); MONO # 0.7 10^3/uL (0.0-0.8); MONO % 9.2 % (0.0-5.0); NEUTROPHILS # 5.6 10^3/uL (1.8-7.7); NEUTROPHILS % 75.4 % (36.0-66.0); PLATELET COUNT, AUTOMATED 121 10^3/uL (150-450); RED CELL DISTRIBUTION WIDTH 14.7 % (11.5-14.5); WHITE BLOOD COUNT 7.4 10^3/uL (4.0-10.0)
[2017-02-13 08:29] LABS: ANION GAP 5 MEQ/L (8-16); BLOOD UREA NITROGEN 15 MG/DL (7-18); CALCIUM LEVEL 8.8 MG/DL (8.8-10.2); CARBON DIOXIDE LEVEL 29 MEQ/L (21-32); CHLORIDE LEVEL 106 MEQ/L (98-107); GLOMERULAR FILTRATION RATE > 60.0 (>42); GLUCOSE, FASTING 103 MG/DL (83-110); POTASSIUM SERUM 3.9 MEQ/L (3.5-5.1); SODIUM LEVEL 140 MEQ/L (136-145)
[2017-02-13] MEDS: ASPIRIN 325 MG TAB PO SCH (09:42)
[2017-02-13] MEDS: METHOCARBAMOL 500 MG TAB PO PRN ×2 (09:42→20:44)
[2017-02-13] MEDS: TAMSULOSIN 0.4 MG CAP PO SCH (09:42)
[2017-02-13] MEDS: MULTIVITAMINS/MINERALS THERAP 1 TAB PO SCH (09:42)
[2017-02-13] MEDS: GABAPENTIN 300 MG CAP PO SCH ×3 (09:42→20:45)
[2017-02-13] MEDS: SENOKOT S TAB PO SCH ×2 (09:43→20:45)
[2017-02-13] MEDS: ATENOLOL 25 MG TAB PO SCH (09:43)
[2017-02-13] MEDS: LISINOPRIL 5 MG TAB PO SCH (09:43)
[2017-02-13] MEDS: ANEXSIA, NORCO 7.5MG/325MG TABLET(HYDROCODONE/APAP) PO PRN ×3 (09:44→21:43)
[2017-02-13] MEDS: LIDOCAINE 5% OINT 30 GM TOP SCH ×3 (09:44→20:45)
[2017-02-13] MEDS: ENOXAPARIN 40 MG/0.4 ML SYRINGE (J1650) SC SCH (09:44)
[2017-02-13 14:00] VITALS: BP 145/68
--- NOTE | 2017-02-13 17:53 | IPN ---
DATE: 02/13/2017 SUBJECTIVE: Patient seen and examined in the room today. Patient continues to complain about the pain. Patient stated with the current pain medication regimen he will have recurrence of the pain every 8 hours. OBJECTIVE: VITAL SIGNS: Temperature is 99.6, pulse is 64, respirations 16, blood pressure 164/92, pulse oximetry is 94% with 2 liters nasal cannula. GENERAL: Mild to moderate distress secondary to persistent pain. Alert and oriented times three. HEENT: Normocephalic, atraumatic. Extraocular motor grossly intact. CARDIOVASCULAR: Positive S1, S2, decreased heart sounds. LUNGS: Decreased lung sounds, but I cannot appreciate any wheezes or rhonchi. ABDOMEN: Soft, nontender, nondistended. Bowel sounds present. EXTREMITIES: No edema. No cyanosis. LABORATORY DATA: WBC is 6.4, hemoglobin 11.6, hematocrit 35.9, platelet count is 121. Sodium is 140, potassium 3.9, chloride 106, carbon dioxide 29, BUN 15, creatinine 0.9, GFR greater than 60, fasting glucose 103, calcium is 8.8. ASSESSMENT AND PLAN: 1. Lumbar radiculopathy. Pain management was consulted during this admission. Patient is currently on [place] and Robaxin. The medication is scheduled every 8 hours as needed. Patient still has intravenous (IV) morphine to supplement the [place]. Will continue to observe to see if patient continues to need the increased amount of pain medications. Patient will continue to work with physical therapy. 2. HIV, on home medications. Patient will followup with Dr. Lord in outpatient setting. 3. Neuropathy, on Neurontin. 4. Obstructive sleep apnea (SANTOS). Patient on SANTOS protocol. Patient uses CPAP at home; however, patient stated he cannot ask anyone to bring the CPAP machine to the hospital. 5. Benign prostatic hypertrophy (BPH), on Flomax. 6. Hypertension, stable. Patient on lisinopril. 7. History of coronary artery disease, status post bypass. On aspirin, atenolol , lisinopril, Lipitor. 8. Obesity. 9. History of paroxysmal atrial fibrillation, on atenolol. 10. Deep vein thrombosis (DVT) prophylaxis, on Lovenox. [facility]
[2017-02-13 20:01] VITALS: O2SAT 91
[2017-02-13] MEDS: ATRIPLA PO SCH (20:44)
[2017-02-13] MEDS: ATORVASTATIN 20 MG TAB PO SCH (20:45)
[2017-02-13 22:00] VITALS: BP 132/80
[2017-02-14 06:00] VITALS: BP 150/72
[2017-02-14] MEDS: ANEXSIA, NORCO 7.5MG/325MG TABLET(HYDROCODONE/APAP) PO PRN ×3 (06:20→20:40)
[2017-02-14] MEDS: METHOCARBAMOL 500 MG TAB PO PRN ×2 (07:30→15:20)
[2017-02-14] MEDS: ASPIRIN 325 MG TAB PO SCH (08:23)
[2017-02-14] MEDS: SENOKOT S TAB PO SCH ×2 (08:24→20:39)
[2017-02-14] MEDS: GABAPENTIN 300 MG CAP PO SCH ×3 (08:24→20:39)
[2017-02-14] MEDS: MULTIVITAMINS/MINERALS THERAP 1 TAB PO SCH (08:24)
[2017-02-14] MEDS: LISINOPRIL 5 MG TAB PO SCH (08:24)
[2017-02-14] MEDS: TAMSULOSIN 0.4 MG CAP PO SCH (08:24)
[2017-02-14] MEDS: ATENOLOL 25 MG TAB PO SCH (08:25)
[2017-02-14] MEDS: LIDOCAINE 5% OINT 30 GM TOP SCH ×3 (08:25→20:40)
[2017-02-14] MEDS: ENOXAPARIN 40 MG/0.4 ML SYRINGE (J1650) SC SCH (08:25)
[2017-02-14] MEDS: SYMBICORT 160/4.5MCG INHALER 6GM INH SCH ×2 (09:26→20:42)
[2017-02-14 14:00] VITALS: BP 132/81
--- NOTE | 2017-02-14 16:27 | IPN ---
DATE: 02/14/2017 SUBJECTIVE: Patient seen and examined in the room today. Patient has as needed pain medication and muscle relaxant every 8 hours. Patient feels the pain is better controlled. Still having intermittent pain exacerbation however the pain is more tolerable. Patient has tried to work with physical therapy in the morning and he will try to attend another sessions in the afternoon. OBJECTIVE: VITAL SIGNS: Temperature is 97.3, pulse is 61, respirations 20, blood pressure 132/81, pulse oximetry is 97% on room air. GENERAL: No sign of acute distress. Alert and oriented times three. HEENT: Normocephalic, atraumatic. Extraocular motor grossly intact. CARDIOVASCULAR: Positive S1, S2, regular rate. Decreased heart sounds. LUNGS: Decreased breath sounds, no wheezes or rhonchi. ABDOMEN: Soft, nontender, nondistended. Bowel sounds present. No rebound no guarding. EXTREMITIES: No edema. No cyanosis. LABORATORY DATA: From 02/13/2017 show a WBC is 7.4, hemoglobin 11.6, hematocrit 35.9, platelet count is 121. Sodium is 140, potassium 3.9, chloride 106, carbon dioxide 29, BUN 15, creatinine 0.9, GFR greater than 60, fasting glucose 103, calcium is 8.8. ASSESSMENT AND PLAN: 1. Lumbar radiculopathy. Pain management was consulted during this admission. Patient is currently on as needed [place] and Robaxin every 8 hours. Patient stated the pain is normal controlled. Patient has not used intravenous (IV) morphine. IV line was removed because the IV insertion is actually causing more pain for the patient. Currently patient does have adequate pain control. Patient will continue to work with physical therapy. 2. HIV, on home medications. Patient will followup with Dr. Lord in outpatient setting. 3. Neuropathy, on Neurontin. 4. Obstructive sleep apnea (SANTOS). Patient on SANTOS protocol. Patient uses CPAP at home; however, patient was not able to bring the CPAP machine to the hospital. 5. Benign prostatic hypertrophy (BPH), on Flomax. 6. Hypertension, stable. On lisinopril. 7. History of coronary artery disease, status post bypass. On aspirin, atenolol , lisinopril, Lipitor. 8. Obesity. 9. History of paroxysmal atrial fibrillation, on atenolol. 10. Deep vein thrombosis (DVT) prophylaxis, on Lovenox. MTDD
[2017-02-14] MEDS: ATORVASTATIN 20 MG TAB PO SCH (20:40)
[2017-02-14] MEDS: ATRIPLA PO SCH (20:40)
[2017-02-14 22:00] VITALS: BP 132/84
[2017-02-15] MEDS: ANEXSIA, NORCO 7.5MG/325MG TABLET(HYDROCODONE/APAP) PO PRN ×4 (02:45→21:50)
[2017-02-15 06:00] VITALS: BP 122/68
[2017-02-15 07:00] LABS: MEAN CORPUSCULAR HEMOGLOBIN 30.5 pg (27.0-33.0); MEAN CORPUSCULAR HGB CONC 32.4 g/dl (32.0-36.5); MEAN CORPUSCULAR VOLUME 94.1 fl (80.0-96.0); RED CELL DISTRIBUTION WIDTH 14.5 % (11.5-14.5); WHITE BLOOD COUNT 5.9 10^3/uL (4.0-10.0)
[2017-02-15 07:25] LABS: ANION GAP 4 MEQ/L (8-16); BLOOD UREA NITROGEN 17 MG/DL (7-18); CALCIUM LEVEL 8.6 MG/DL (8.8-10.2); CARBON DIOXIDE LEVEL 31 MEQ/L (21-32); CHLORIDE LEVEL 106 MEQ/L (98-107); GLOMERULAR FILTRATION RATE > 60.0 (>42); GLUCOSE, FASTING 100 MG/DL (83-110); SODIUM LEVEL 141 MEQ/L (136-145)
[2017-02-15] MEDS: SYMBICORT 160/4.5MCG INHALER 6GM INH SCH ×2 (07:36→21:38)
[2017-02-15] MEDS: TAMSULOSIN 0.4 MG CAP PO SCH (09:24)
[2017-02-15] MEDS: GABAPENTIN 300 MG CAP PO SCH ×3 (09:24→20:36)
[2017-02-15] MEDS: LISINOPRIL 5 MG TAB PO SCH (09:25)
[2017-02-15] MEDS: ASPIRIN 325 MG TAB PO SCH (09:25)
[2017-02-15] MEDS: ATENOLOL 25 MG TAB PO SCH (09:25)
[2017-02-15] MEDS: MULTIVITAMINS/MINERALS THERAP 1 TAB PO SCH (09:25)
[2017-02-15] MEDS: SENOKOT S TAB PO SCH ×2 (09:25→20:36)
[2017-02-15] MEDS: LIDOCAINE 5% OINT 30 GM TOP SCH ×3 (09:26→20:39)
[2017-02-15] MEDS: ENOXAPARIN 40 MG/0.4 ML SYRINGE (J1650) SC SCH (09:26)
[2017-02-15] MEDS: METHOCARBAMOL 500 MG TAB PO PRN ×2 (10:31→20:37)
[2017-02-15 14:00] VITALS: BP 108/60
--- NOTE | 2017-02-15 17:57 | IPN ---
DATE: 02/15/2017 SUBJECTIVE: Patient seen and examined in the room today. Patient continued to use [place] and Robaxin every 8 hours. Patient has performed well with the physical therapy in the morning. He is able to walk around the hallway without any issues. The next physical therapy session will try the stairs. OBJECTIVE: VITAL SIGNS: Temperature is 97.7, pulse is 53, respirations 18, blood pressure 122/68, pulse oximetry is 96% on room air. GENERAL: No sign of acute distress. Alert and oriented times three. HEENT: Normocephalic, atraumatic. Extraocular motor grossly intact. CARDIOVASCULAR: Positive S1, S2, regular rate. Decreased heart sounds. LUNGS: Decreased breath sounds, no wheezes or rhonchi. ABDOMEN: Soft, nontender, nondistended. Bowel sounds present. No rebound no guarding. EXTREMITIES: No edema. No cyanosis. LABORATORY DATA: From WBC is 5.9, hemoglobin 11.8, hematocrit 36.4, platelet count is 141. Sodium is 141, potassium 4, chloride 106, carbon dioxide 31, BUN 17, creatinine 1, GFR greater than 60, fasting glucose 100, calcium is 8.6. ASSESSMENT AND PLAN: 1. Lumbar radiculopathy. Patient has been using [place] and Robaxin every 8 hours. Patient performed well with therapy. Patient is able to walk around the hallway without any difficulty. Right now the next step will be to try the patient on the stairs. Per physical therapy if the patient can tolerate those activities well then patient will be cleared per physical therapy. Patients pain is being controlled fairly well. Once the patient is cleared by physical therapy the patient can b e discharged home. 2. HIV, on home medications. Patient will followup with Dr. Lord in outpatient setting. 3. Neuropathy, on Neurontin. 4. Obstructive sleep apnea (SANTOS). Patient on SANTOS protocol. Patient uses CPAP at home; however, patient was not able to bring the CPAP machine to the hospital. 5. Benign prostatic hypertrophy (BPH), on Flomax. 6. Hypertension, stable. On lisinopril. 7. History of coronary artery disease, status post bypass. On aspirin, atenolol , lisinopril, Lipitor. 8. Obesity. 9. History of paroxysmal atrial fibrillation, on atenolol. 10. Deep vein thrombosis (DVT) prophylaxis, on Lovenox. MTDD
[2017-02-15] MEDS: ATORVASTATIN 20 MG TAB PO SCH (20:36)
[2017-02-15] MEDS: ATRIPLA PO SCH (20:37)
[2017-02-15 21:36] VITALS: O2SAT 96
[2017-02-15 22:00] VITALS: BP 129/67
[2017-02-16 06:00] VITALS: BP 166/75
[2017-02-16] MEDS: ANEXSIA, NORCO 7.5MG/325MG TABLET(HYDROCODONE/APAP) PO PRN ×2 (06:43→13:12)
[2017-02-16 07:11] LABS: MEAN CORPUSCULAR HEMOGLOBIN 30.4 pg (27.0-33.0); MEAN CORPUSCULAR HGB CONC 32.8 g/dl (32.0-36.5); MEAN CORPUSCULAR VOLUME 92.8 fl (80.0-96.0); RED CELL DISTRIBUTION WIDTH 14.5 % (11.5-14.5); WHITE BLOOD COUNT 6.5 10^3/uL (4.0-10.0)
[2017-02-16 07:28] LABS: ANION GAP 4 MEQ/L (8-16); BLOOD UREA NITROGEN 18 MG/DL (7-18); CALCIUM LEVEL 8.6 MG/DL (8.8-10.2); CARBON DIOXIDE LEVEL 30 MEQ/L (21-32); CHLORIDE LEVEL 107 MEQ/L (98-107); CREATININE FOR GFR 0.95 MG/DL (0.70-1.30); GLOMERULAR FILTRATION RATE > 60.0 (>42); GLUCOSE, FASTING 103 MG/DL (83-110); SODIUM LEVEL 141 MEQ/L (136-145)
[2017-02-16] MEDS: SYMBICORT 160/4.5MCG INHALER 6GM INH SCH ×2 (08:13→19:29)
[2017-02-16] MEDS: ENOXAPARIN 40 MG/0.4 ML SYRINGE (J1650) SC SCH (08:27)
[2017-02-16] MEDS: LIDOCAINE 5% OINT 30 GM TOP SCH ×3 (08:27→21:17)
[2017-02-16] MEDS: SENOKOT S TAB PO SCH ×2 (08:27→21:15)
[2017-02-16] MEDS: ASPIRIN 325 MG TAB PO SCH (08:27)
[2017-02-16] MEDS: GABAPENTIN 300 MG CAP PO SCH ×3 (08:27→21:16)
[2017-02-16] MEDS: LISINOPRIL 5 MG TAB PO SCH (08:28)
[2017-02-16] MEDS: ATENOLOL 25 MG TAB PO SCH (08:28)
[2017-02-16] MEDS: METHOCARBAMOL 500 MG TAB PO PRN ×2 (08:28→16:24)
[2017-02-16] MEDS: MULTIVITAMINS/MINERALS THERAP 1 TAB PO SCH (08:28)
[2017-02-16] MEDS: TAMSULOSIN 0.4 MG CAP PO SCH (08:28)
[2017-02-16 14:00] VITALS: BP 140/80
--- NOTE | 2017-02-16 15:33 | IPN ---
DATE: 02/16/2017 SUBJECTIVE: Patient seen and examined in the room today. The patient stated he is feeling better. The pain is fairly controlled. The patient will continue to work with physical therapy to try the stairs. The patient is able to walk on the ground level without any issue. The patient does have multiple stairs in front of his doorway. We will continue to assess his capacity. OBJECTIVE: VITAL SIGNS: Temperature 98, pulse 60, respirations 18, blood pressure 166/72, pulse oximetry is 95% with two liters nasal cannula. GENERAL: No sign of acute distress. Alert and oriented times three. HEENT: Normocephalic, atraumatic. Extraocular motor grossly intact. CARDIOVASCULAR: Positive S1, S2. Regular rate. Decreased heart sounds. LUNGS: Decreased breath sounds. No wheezes or rhonchi. ABDOMEN: Soft, nontender, nondistended. Bowel sounds present. No rebound, no guarding. EXTREMITIES: No edema. No cyanosis. LABORATORY DATA: WBC is 6.5, hemoglobin 11.9, hematocrit 36.3, platelet count 157. Sodium 141, potassium four, chloride 107, carbon dioxide 30, BUN 18, creatinine 0.95, GFR greater than 60, fasting glucose 103, calcium 8.6. ASSESSMENT AND PLAN: 1. Lumbar radiculopathy. Pain is in fairly good control on [place] and Robaxin every eight hours. The patient continues to work with physical therapy. If patient continues to improve, the patient may be discharged home tomorrow. 2. HIV, on home medication. Followup with Dr. Lord in outpatient setting. 3. Neuropathy, on Neurontin. 4. Obstructive sleep apnea (SANTOS) on SANTOS protocol. The patient does not have the capacity to bring his continuous positive airway pressure (CPAP) from home to the hospital. 5. Benign prostatic hypertrophy (BPH), on Flomax. 6. Hypertension, on lisinopril and atenolol. 7. History of coronary artery disease status post bypass. On aspirin, atenolol and lisinopril, and Lipitor. 8. Obesity. 9. History of paroxysmal atrial fibrillation on atenolol. 10. Deep venous thrombosis (DVT) prophylaxis on Lovenox. [facility]
[2017-02-16] MEDS: ATRIPLA PO SCH (21:16)
[2017-02-16] MEDS: ATORVASTATIN 20 MG TAB PO SCH (21:16)
[2017-02-16 22:00] VITALS: BP 136/74
[2017-02-17] MEDS: ANEXSIA, NORCO 7.5MG/325MG TABLET(HYDROCODONE/APAP) PO PRN ×2 (03:21→10:05)
[2017-02-17 06:00] VITALS: BP 142/71
[2017-02-17 06:55] LABS: MEAN CORPUSCULAR HEMOGLOBIN 30.1 pg (27.0-33.0); MEAN CORPUSCULAR HGB CONC 32.4 g/dl (32.0-36.5); MEAN CORPUSCULAR VOLUME 93.2 fl (80.0-96.0); RED CELL DISTRIBUTION WIDTH 14.5 % (11.5-14.5); WHITE BLOOD COUNT 6.3 10^3/uL (4.0-10.0)
[2017-02-17 07:16] LABS: ANION GAP 6 MEQ/L (8-16); BLOOD UREA NITROGEN 17 MG/DL (7-18); CALCIUM LEVEL 8.9 MG/DL (8.8-10.2); CARBON DIOXIDE LEVEL 29 MEQ/L (21-32); CHLORIDE LEVEL 107 MEQ/L (98-107); CREATININE FOR GFR 0.94 MG/DL (0.70-1.30); GLOMERULAR FILTRATION RATE > 60.0 (>42); GLUCOSE, FASTING 106 MG/DL (83-110); POTASSIUM SERUM 3.7 MEQ/L (3.5-5.1); SODIUM LEVEL 142 MEQ/L (136-145)
[2017-02-17] MEDS: SYMBICORT 160/4.5MCG INHALER 6GM INH SCH (08:06)
[2017-02-17] MEDS: ENOXAPARIN 40 MG/0.4 ML SYRINGE (J1650) SC SCH (09:00)
[2017-02-17] MEDS: LIDOCAINE 5% OINT 30 GM TOP SCH (09:00)
[2017-02-17] MEDS: ASPIRIN 325 MG TAB PO SCH (09:00)
[2017-02-17] MEDS ORDERED: METH1TAB40 PO (09:07)
[2017-02-17] MEDS ORDERED: HYDR-3716 PO (09:07)
[2017-02-17] MEDS: GABAPENTIN 300 MG CAP PO SCH (10:02)
[2017-02-17] MEDS: TAMSULOSIN 0.4 MG CAP PO SCH (10:02)
[2017-02-17 10:03] VITALS: BP 142/71
[2017-02-17] MEDS: ATENOLOL 25 MG TAB PO SCH (10:03)
[2017-02-17] MEDS: SENOKOT S TAB PO SCH (10:03)
[2017-02-17] MEDS: LISINOPRIL 5 MG TAB PO SCH (10:03)
[2017-02-17] MEDS: MULTIVITAMINS/MINERALS THERAP 1 TAB PO SCH (10:04)
--- NOTE | 2017-02-20 19:24 | DSES ---
DATE OF ADMISSION: 02/09/2017 DATE OF DISCHARGE: 02/17/2017 PRIMARY CARE PROVIDER: Dr. Becka Lord CONSULTANTS: Pain management. PROCEDURE: None. COMPLICATIONS: None. DISCHARGE DIAGNOSES: 1. Lumbar radiculopathy. 2. HIV. 3. Neuropathies. 4. Obstructive sleep apnea (SANTOS). 5. Benign prostatic hypertrophy. 6. Hypertension. 7. Coronary artery disease status-post bypass. 8. History of paroxysmal atrial fibrillation. HOSPITALIZATION COURSE: Patient is a 71-year-old male presented to [facility] on 02/08/2017 for back pain. Imaging studies was showed the patient had a lumbar nerve compression at multiple levels and pain management was consulted. Patients pain medication, muscle relaxant were adjusted actively per recommendation and patient is being prescribed intravenous (IV) pain medication on an as needed basis. Patient continues to work with physical therapy. The patient has pain and patient continues progression with physical therapy. On 02/17/2017, patient is determined medically stable for discharge. Patient was cleared by physical therapy. OBJECTIVE: VITAL SIGNS: Temperature 97.7, pulse 52, respirations 18, blood pressure 142/71, pulse oximetry is 92% in room air. LABORATORY DATA: On the day of discharge, WBC 6.3, hemoglobin 11, hematocrit 34, platelet count 149. Sodium 142, potassium 3.7, chloride 107, carbon dioxide 29, BUN 17, creatinine 0.94, GFR greater than 60, fasting glucose 106, calcium 8.9. IMAGING STUDIES: CT lumbar spine without contrast showed grade 1 anterolisthesis of the L5-S1. Advanced multilevel spondylosis. Grade 1 retrolisthesis of the L3-L4. Multiple bilateral renal cysts. 3.5 mm calculus in the superior pole of the left kidney. Status-post cholecystectomy. L5-S1 base of herniated disc with some spurring. Severe bilateral foraminal stenosis. Compression of the bilateral L5 nerve roots. L4-L5 upper disc osteophyte. Moderate to severe bilateral foraminal stenosis with some mild central canal stenosis. L3-L4 probably complex osteophyte. Severe bilateral foraminal stenosis in the compression of the bilateral L3 nerve roots. L2-L3 broad based disc complex osteophyte. Severe bilateral foraminal stenosis and compression of bilateral L2 nerve roots. Lumbar spine MRI without contrast showed diffuse disc bulging at the L1-2 and L4-5 level. Diffuse disc bulging and mild sized disc extrusion at L2-3 level with some mild compression of the thecal sac in the right L3 nerve. Right disc bulging and small central disc extrusion at the L3-4 level with some minimal thecal sac compression. Diffuse disc bulge at the L5 to S1 level with minimal thecal sac compression. Grade 1 spondylolisthesis of L5 to S1. There is a compression of the L5 nerve in the neural foramina. Chest x-ray showed sternotomy wires and cardiomegaly. DISCHARGE MEDICATIONS: - [place] 7.5-325 1 tab by mouth every 6 hours as needed - Robaxin 500 mg by mouth three times a day as needed - Ventolin 2 puff inhalation every 4 hours as needed - aspirin 325 mg by mouth daily - atenolol 25 mg by mouth daily - atorvastatin 40 mg by mouth at night - Symbicort 2 puff inhalation twice a day - Atripla 1 tab by mouth at night - gabapentin 300 mg by mouth three times a day - lisinopril 5 mg by mouth daily - multivitamin 1 tablet by mouth daily - spironolactone 12.5 mg by mouth daily - Flomax 0.4 mg by mouth daily DISCHARGE INSTRUCTIONS: Discharge home, activity as tolerated. Followup should followup with his primary care provider in 1-2 weeks. DISCHARGE CONDITION: Stable. DISCHARGE TIME: Greater than 30 minutes.
== END 2017-02-17 13:05 | disposition home health service (06) | DRG 551 ==
LOC: M ED 14:19 → M ED INP 14:20 → M MS5PR 02-08 02:00 → OBSVTOIN 02-09 06:30 → M MS5PR 02-09 09:50
PROVIDERS: ADMIT Internal Medicine; ATTEND Internal Medicine
DX: M51.27 Other intervertebral disc displacement, lumbosacral region (principal); B20 Human immunodeficiency virus [HIV] disease; N17.9 Acute kidney failure, unspecified; N20.0 Calculus of kidney; I50.9 Heart failure, unspecified; I11.0 Hypertensive heart disease with heart failure; E66.9 Obesity, unspecified; G47.33 Obstructive sleep apnea (adult) (pediatric); I25.10 Atherosclerotic heart disease of native coronary artery without angina pectoris; I48.0 Paroxysmal atrial fibrillation; N40.0 Benign prostatic hyperplasia without lower urinary tract symptoms; N28.1 Cyst of kidney, acquired; Z79.82 Long term (current) use of aspirin; Z79.899 Other long term (current) drug therapy; J44.9 Chronic obstructive pulmonary disease, unspecified; I25.2 Old myocardial infarction; Z87.891 Personal history of nicotine dependence; Z68.39 Body mass index [BMI] 39.0-39.9, adult; G60.9 Hereditary and idiopathic neuropathy, unspecified; M54.16 Radiculopathy, lumbar region

== ENCOUNTER → 2017-04-10 | Outpatient (CLI) | payer OTHER | LOC: M PAIN 14:00 | DX: M47.816 Spondylosis without myelopathy or radiculopathy, lumbar region (principal); M54.16 Radiculopathy, lumbar region; G62.9 Polyneuropathy, unspecified; I10 Essential (primary) hypertension; E78.5 Hyperlipidemia, unspecified; I25.2 Old myocardial infarction; B20 Human immunodeficiency virus [HIV] disease; J44.9 Chronic obstructive pulmonary disease, unspecified; N40.0 Benign prostatic hyperplasia without lower urinary tract symptoms; Z79.82 Long term (current) use of aspirin; Z79.891 Long term (current) use of opiate analgesic; Z79.899 Other long term (current) drug therapy; Z87.891 Personal history of nicotine dependence | CPT/HCPCS: G0463 ==

== ENCOUNTER → 2017-05-02 | Outpatient (CLI) | payer OTHER ==
[~2017-05-02] MED LIST: ISOVUE-M 300 61% 15ML VIAL (Q9967) As Ordered; diazePAM 5 MG TAB As Ordered; methylPREDNISolone SUSP 40 MG/ML (DEPO-medrol) VIAL (J1030) As Ordered; oxyCODONE 5MG TAB As Ordered
== END ==
LOC: M PAIN 12:30
DX: G89.29 Other chronic pain (principal); M51.16 Intervertebral disc disorders with radiculopathy, lumbar region; B20 Human immunodeficiency virus [HIV] disease; I10 Essential (primary) hypertension; E78.5 Hyperlipidemia, unspecified; J44.9 Chronic obstructive pulmonary disease, unspecified; I25.10 Atherosclerotic heart disease of native coronary artery without angina pectoris; I25.2 Old myocardial infarction; Z95.1 Presence of aortocoronary bypass graft; E66.9 Obesity, unspecified; G47.30 Sleep apnea, unspecified; Z79.82 Long term (current) use of aspirin; Z79.891 Long term (current) use of opiate analgesic; Z79.899 Other long term (current) drug therapy; Z68.41 Body mass index [BMI] 40.0-44.9, adult
CPT/HCPCS: J1030

== ENCOUNTER 2017-05-16 13:02 | Inpatient (IN) | payer MEDICARE, OTHER ==
[2017-05-16] MEDS: ONDANSETRON 4MG/2ML VIAL (J2405) IV (13:45)
[2017-05-16] MEDS: MORPHINE 2 MG/ML 1ML SYRINGE IV ×4 (13:46→20:56)
[2017-05-16 13:51] LABS: BASO # 0.1 10^3/uL (0.0-0.2); BASO % 0.9 % (0.0-1.0); EOS # 0.1 10^3/uL (0.0-0.50); EOS % 1.1 % (0.0-3.0); HEMATOCRIT 42.3 % (42.0-52.0); HEMOGLOBIN 14.1 g/dl (14.0-18.0); IMMATURE GRANULOCYTE % 0.4 % (0-0); LYMPH % 11.7 % (24.0-44.0); MEAN CORPUSCULAR HEMOGLOBIN 29.7 pg (27.0-33.0); MEAN CORPUSCULAR HGB CONC 33.3 g/dl (32.0-36.5); MEAN CORPUSCULAR VOLUME 89.1 fl (80.0-96.0); MONO # 0.6 10^3/uL (0.0-0.8); MONO % 7.2 % (0.0-5.0); NEUTROPHILS # 6.5 10^3/uL (1.8-7.7); NEUTROPHILS % 78.7 % (36.0-66.0); PLATELET COUNT, AUTOMATED 176 10^3/uL (150-450); RED BLOOD COUNT 4.75 10^6/uL (4.30-6.10); RED CELL DISTRIBUTION WIDTH 13.8 % (11.5-14.5); WHITE BLOOD COUNT 8.2 10^3/uL (4.0-10.0)
[2017-05-16 14:04] LABS: KETONE, URINE AUTO RFX NEGATIVE (NEGATIVE); LEUKOCYTE ESTERASE UR AUTO RFX NEGATIVE (NEGATIVE); MUCUS, URINE RFX SMALL (NEGATIVE); NITRITE, URINE AUTO RFX NEGATIVE (NEGATIVE); RBC, URINE AUTO RFX 2 /HPF (0-3); SPECIFIC GRAVITY UR AUTO RFX 1.012 (1.002-1.035); SQUAM EPITHELIAL CELL UR AURFX 0 /HPF (0-6); WBC, URINE AUTO RFX 3 /HPF (0-3)
[2017-05-16 14:21] LABS: ALBUMIN 3.6 GM/DL (3.2-5.2); ALKALINE PHOSPHATASE 109 U/L (45-117); ALT/SGPT 24 U/L (12-78); ANION GAP 6 MEQ/L (8-16); AST/SGOT 18 U/L (7-37); BILIRUBIN,DIRECT 0.1 MG/DL (0.0-0.2); BILIRUBIN,TOTAL 0.7 MG/DL (0.2-1.0); BLOOD UREA NITROGEN 13 MG/DL (7-18); CALCIUM LEVEL 9.1 MG/DL (8.8-10.2); CARBON DIOXIDE LEVEL 28 MEQ/L (21-32); CHLORIDE LEVEL 105 MEQ/L (98-107); GLOMERULAR FILTRATION RATE > 60.0 (>42); GLUCOSE, FASTING 128 MG/DL (83-110); LIPASE 135 U/L (73-393); POTASSIUM SERUM 4.2 MEQ/L (3.5-5.1); SODIUM LEVEL 139 MEQ/L (136-145); TOTAL PROTEIN 7.6 GM/DL (6.4-8.2)
[2017-05-16] MEDS ORDERED: METHOCARBAMOL 500 MG TAB PO (18:15)
[2017-05-16] MEDS ORDERED: MORPHINE 2 MG/ML 1ML SYRINGE IV (18:15)
[2017-05-16] MEDS ORDERED: ONDANSETRON 4MG/2ML VIAL (J2405) IV (18:15)
[2017-05-16] MEDS: GABAPENTIN 300 MG CAP PO (20:55)
[2017-05-16] MEDS: ATORVASTATIN 20 MG TAB PO (20:55)
[2017-05-17] MEDS: LISINOPRIL 5 MG TAB PO ×2 (00:03→21:34)
[2017-05-17] MEDS: TRUVADA 200MG/300MG TABLET PO ×2 (02:18→21:31)
[2017-05-17] MEDS: EFAVIRENZ 600 MG TABLET PO ×2 (02:18→21:34)
[2017-05-17 06:16] LABS: HEMATOCRIT 40.5 % (42.0-52.0); HEMOGLOBIN 13.3 g/dl (14.0-18.0); MEAN CORPUSCULAR HEMOGLOBIN 29.9 pg (27.0-33.0); MEAN CORPUSCULAR HGB CONC 32.8 g/dl (32.0-36.5); PLATELET COUNT, AUTOMATED 168 10^3/uL (150-450); RED BLOOD COUNT 4.45 10^6/uL (4.30-6.10); WHITE BLOOD COUNT 7.5 10^3/uL (4.0-10.0)
[2017-05-17 06:30] LABS: ANION GAP 6 MEQ/L (8-16); BLOOD UREA NITROGEN 17 MG/DL (7-18); CALCIUM LEVEL 8.7 MG/DL (8.8-10.2); CARBON DIOXIDE LEVEL 29 MEQ/L (21-32); CHLORIDE LEVEL 104 MEQ/L (98-107); CREATININE FOR GFR 1.22 MG/DL (0.70-1.30); GLOMERULAR FILTRATION RATE > 60.0 (>42); GLUCOSE, FASTING 102 MG/DL (83-110); MAGNESIUM LEVEL 2.5 MG/DL (1.8-2.4); POTASSIUM SERUM 4.2 MEQ/L (3.5-5.1); SODIUM LEVEL 139 MEQ/L (136-145)
[2017-05-17] MEDS: SYMBICORT 160/4.5MCG INHALER 6GM INH ×2 (08:46→22:22)
[2017-05-17] MEDS: GABAPENTIN 300 MG CAP PO ×3 (09:58→21:34)
[2017-05-17] MEDS: SPIRONOLACTONE 12.5MG PER 1/2 TABLET PO (09:58)
[2017-05-17] MEDS: MULTIVITAMINS/MINERALS THERAP 1 TAB PO (09:58)
[2017-05-17] MEDS: ASPIRIN ENTERIC 325 MG TAB PO (09:58)
[2017-05-17] MEDS: ANEXSIA, NORCO 7.5MG/325MG TABLET(HYDROCODONE/APAP) PO ×2 (09:59→18:38)
[2017-05-17] MEDS: TAMSULOSIN 0.4 MG CAP PO (09:59)
[2017-05-17] MEDS: ATENOLOL 25 MG TAB PO (10:01)
[2017-05-17] MEDS: ATORVASTATIN 20 MG TAB PO (21:34)
[2017-05-17] MEDS: SENNA 8.6 MG TAB (SENOKOT) PO (21:34)
[2017-05-18] MEDS: ANEXSIA, NORCO 7.5MG/325MG TABLET(HYDROCODONE/APAP) PO (05:52)
[2017-05-18 06:33] LABS: ANION GAP 4 MEQ/L (8-16); BLOOD UREA NITROGEN 24 MG/DL (7-18); CALCIUM LEVEL 8.8 MG/DL (8.8-10.2); CARBON DIOXIDE LEVEL 29 MEQ/L (21-32); CHLORIDE LEVEL 106 MEQ/L (98-107); CREATININE FOR GFR 1.28 MG/DL (0.70-1.30); GLOMERULAR FILTRATION RATE 58.6 (>42); GLUCOSE, FASTING 122 MG/DL (83-110); MAGNESIUM LEVEL 2.6 MG/DL (1.8-2.4); POTASSIUM SERUM 4.3 MEQ/L (3.5-5.1); SODIUM LEVEL 139 MEQ/L (136-145)
[2017-05-18 06:35] LABS: HEMATOCRIT 41.3 % (42.0-52.0); HEMOGLOBIN 13.5 g/dl (14.0-18.0); MEAN CORPUSCULAR HEMOGLOBIN 30.1 pg (27.0-33.0); MEAN CORPUSCULAR HGB CONC 32.7 g/dl (32.0-36.5); MEAN CORPUSCULAR VOLUME 92.2 fl (80.0-96.0); PLATELET COUNT, AUTOMATED 159 10^3/uL (150-450); RED BLOOD COUNT 4.48 10^6/uL (4.30-6.10); RED CELL DISTRIBUTION WIDTH 14.3 % (11.5-14.5); WHITE BLOOD COUNT 8.4 10^3/uL (4.0-10.0)
[2017-05-18] MEDS: SYMBICORT 160/4.5MCG INHALER 6GM INH ×2 (07:33→21:50)
[2017-05-18] MEDS: SPIRONOLACTONE 12.5MG PER 1/2 TABLET PO (09:34)
[2017-05-18] MEDS: ATENOLOL 25 MG TAB PO (09:34)
[2017-05-18] MEDS: TAMSULOSIN 0.4 MG CAP PO (09:55)
[2017-05-18] MEDS: SENNA 8.6 MG TAB (SENOKOT) PO ×2 (09:55→21:27)
[2017-05-18] MEDS: ASPIRIN ENTERIC 325 MG TAB PO (09:55)
[2017-05-18] MEDS: MULTIVITAMINS/MINERALS THERAP 1 TAB PO (09:55)
[2017-05-18] MEDS: GABAPENTIN 300 MG CAP PO ×3 (09:55→21:27)
[2017-05-18] MEDS: ENOXAPARIN 40 MG/0.4 ML SYRINGE (J1650) SC (09:56)
[2017-05-18] MEDS: METHOCARBAMOL 500 MG TAB PO ×3 (11:08→21:27)
[2017-05-18] MEDS: LIDOCAINE 5% (LIDODERM) PATCH TD (11:09)
[2017-05-18] MEDS: MOM 30ML SUSPENSION UDC PO ×2 (15:54→21:28)
[2017-05-18] MEDS: **NOTE PATIENT COMMENT** MISC XX (21:00)
[2017-05-18] MEDS: ATORVASTATIN 20 MG TAB PO (21:25)
[2017-05-18] MEDS: TRUVADA 200MG/300MG TABLET PO (21:27)
[2017-05-18] MEDS: EFAVIRENZ 600 MG TABLET PO (21:27)
[2017-05-18] MEDS: LISINOPRIL 5 MG TAB PO (21:27)
[2017-05-19 05:41] LABS: HEMATOCRIT 38.6 % (42.0-52.0); HEMOGLOBIN 12.7 g/dl (14.0-18.0); MEAN CORPUSCULAR HEMOGLOBIN 30.2 pg (27.0-33.0); MEAN CORPUSCULAR HGB CONC 32.9 g/dl (32.0-36.5); MEAN CORPUSCULAR VOLUME 91.9 fl (80.0-96.0); PLATELET COUNT, AUTOMATED 157 10^3/uL (150-450); RED CELL DISTRIBUTION WIDTH 14.2 % (11.5-14.5); WHITE BLOOD COUNT 6.6 10^3/uL (4.0-10.0)
[2017-05-19 06:00] LABS: ANION GAP 5 MEQ/L (8-16); BLOOD UREA NITROGEN 21 MG/DL (7-18); CALCIUM LEVEL 8.5 MG/DL (8.8-10.2); CARBON DIOXIDE LEVEL 29 MEQ/L (21-32); CHLORIDE LEVEL 107 MEQ/L (98-107); CREATININE FOR GFR 1.13 MG/DL (0.70-1.30); GLOMERULAR FILTRATION RATE > 60.0 (>42); GLUCOSE, FASTING 136 MG/DL (83-110); MAGNESIUM LEVEL 2.8 MG/DL (1.8-2.4); POTASSIUM SERUM 3.9 MEQ/L (3.5-5.1); SODIUM LEVEL 141 MEQ/L (136-145)
[2017-05-19] MEDS: ANEXSIA, NORCO 7.5MG/325MG TABLET(HYDROCODONE/APAP) PO ×2 (06:47→21:12)
[2017-05-19] MEDS: SYMBICORT 160/4.5MCG INHALER 6GM INH ×2 (08:01→19:15)
[2017-05-19] MEDS: TAMSULOSIN 0.4 MG CAP PO (09:35)
[2017-05-19] MEDS: ASPIRIN ENTERIC 325 MG TAB PO (09:35)
[2017-05-19] MEDS: MULTIVITAMINS/MINERALS THERAP 1 TAB PO (09:35)
[2017-05-19] MEDS: ATENOLOL 25 MG TAB PO (09:36)
[2017-05-19] MEDS: METHOCARBAMOL 500 MG TAB PO ×3 (09:36→21:09)
[2017-05-19] MEDS: SENNA 8.6 MG TAB (SENOKOT) PO ×2 (09:37→21:13)
[2017-05-19] MEDS: SPIRONOLACTONE 12.5MG PER 1/2 TABLET PO (09:37)
[2017-05-19] MEDS: GABAPENTIN 300 MG CAP PO ×3 (09:37→21:09)
[2017-05-19] MEDS: ENOXAPARIN 40 MG/0.4 ML SYRINGE (J1650) SC (09:38)
[2017-05-19] MEDS: LIDOCAINE 5% (LIDODERM) PATCH TD (13:59)
[2017-05-19] MEDS: **NOTE PATIENT COMMENT** MISC XX (21:00)
[2017-05-19] MEDS: EFAVIRENZ 600 MG TABLET PO (21:08)
[2017-05-19] MEDS: ATORVASTATIN 20 MG TAB PO (21:09)
[2017-05-19] MEDS: TRUVADA 200MG/300MG TABLET PO (21:12)
[2017-05-19] MEDS: LISINOPRIL 5 MG TAB PO (21:16)
[2017-05-20 05:49] LABS: HEMATOCRIT 40.5 % (42.0-52.0); HEMOGLOBIN 13.1 g/dl (14.0-18.0); MEAN CORPUSCULAR HEMOGLOBIN 29.9 pg (27.0-33.0); MEAN CORPUSCULAR HGB CONC 32.3 g/dl (32.0-36.5); MEAN CORPUSCULAR VOLUME 92.5 fl (80.0-96.0); PLATELET COUNT, AUTOMATED 173 10^3/uL (150-450); RED BLOOD COUNT 4.38 10^6/uL (4.30-6.10); RED CELL DISTRIBUTION WIDTH 14.2 % (11.5-14.5); WHITE BLOOD COUNT 7.3 10^3/uL (4.0-10.0)
[2017-05-20 06:02] LABS: ANION GAP 4 MEQ/L (8-16); BLOOD UREA NITROGEN 19 MG/DL (7-18); CALCIUM LEVEL 8.8 MG/DL (8.8-10.2); CARBON DIOXIDE LEVEL 29 MEQ/L (21-32); CHLORIDE LEVEL 108 MEQ/L (98-107); CREATININE FOR GFR 1.02 MG/DL (0.70-1.30); GLOMERULAR FILTRATION RATE > 60.0 (>42); GLUCOSE, FASTING 106 MG/DL (83-110); MAGNESIUM LEVEL 2.9 MG/DL (1.8-2.4); POTASSIUM SERUM 4.4 MEQ/L (3.5-5.1); SODIUM LEVEL 141 MEQ/L (136-145)
[2017-05-20] MEDS: ENOXAPARIN 40 MG/0.4 ML SYRINGE (J1650) SC (08:00)
[2017-05-20] MEDS: METHOCARBAMOL 500 MG TAB PO ×3 (08:01→21:09)
[2017-05-20] MEDS: TAMSULOSIN 0.4 MG CAP PO (08:01)
[2017-05-20] MEDS: SPIRONOLACTONE 12.5MG PER 1/2 TABLET PO (08:01)
[2017-05-20] MEDS: GABAPENTIN 300 MG CAP PO ×3 (08:01→21:10)
[2017-05-20] MEDS: ASPIRIN 325 MG TAB PO (08:01)
[2017-05-20] MEDS: SENNA 8.6 MG TAB (SENOKOT) PO ×2 (08:01→21:10)
[2017-05-20] MEDS: ATENOLOL 25 MG TAB PO (08:02)
[2017-05-20] MEDS: LIDOCAINE 5% (LIDODERM) PATCH TD (08:03)
[2017-05-20] MEDS: MULTIVITAMINS/MINERALS THERAP 1 TAB PO (08:03)
[2017-05-20] MEDS: ANEXSIA, NORCO 7.5MG/325MG TABLET(HYDROCODONE/APAP) PO ×2 (08:03→21:11)
[2017-05-20] MEDS: SYMBICORT 160/4.5MCG INHALER 6GM INH ×2 (08:43→22:06)
[2017-05-20] MEDS: BISACODYL 10 MG SUPP PR (15:36)
[2017-05-20] MEDS: TRUVADA 200MG/300MG TABLET PO (21:09)
[2017-05-20] MEDS: ATORVASTATIN 20 MG TAB PO (21:09)
[2017-05-20] MEDS: EFAVIRENZ 600 MG TABLET PO (21:09)
[2017-05-20] MEDS: LISINOPRIL 5 MG TAB PO (21:10)
[2017-05-20] MEDS: **NOTE PATIENT COMMENT** MISC XX (21:13)
[2017-05-21] MEDS: SYMBICORT 160/4.5MCG INHALER 6GM INH ×2 (07:46→21:00)
[2017-05-21 07:55] LABS: ANION GAP 6 MEQ/L (8-16); BLOOD UREA NITROGEN 19 MG/DL (7-18); CALCIUM LEVEL 8.8 MG/DL (8.8-10.2); CARBON DIOXIDE LEVEL 26 MEQ/L (21-32); CHLORIDE LEVEL 108 MEQ/L (98-107); CREATININE FOR GFR 1.01 MG/DL (0.70-1.30); GLOMERULAR FILTRATION RATE > 60.0 (>42); GLUCOSE, FASTING 104 MG/DL (83-110); MAGNESIUM LEVEL 2.5 MG/DL (1.8-2.4); POTASSIUM SERUM 4.2 MEQ/L (3.5-5.1); SODIUM LEVEL 140 MEQ/L (136-145)
[2017-05-21 08:03] LABS: HEMATOCRIT 38.8 % (42.0-52.0); MEAN CORPUSCULAR HEMOGLOBIN 30.4 pg (27.0-33.0); MEAN CORPUSCULAR HGB CONC 33.5 g/dl (32.0-36.5); MEAN CORPUSCULAR VOLUME 90.9 fl (80.0-96.0); PLATELET COUNT, AUTOMATED 144 10^3/uL (150-450); RED BLOOD COUNT 4.27 10^6/uL (4.30-6.10); RED CELL DISTRIBUTION WIDTH 14.3 % (11.5-14.5); WHITE BLOOD COUNT 6.9 10^3/uL (4.0-10.0)
[2017-05-21] MEDS: TAMSULOSIN 0.4 MG CAP PO (08:03)
[2017-05-21] MEDS: GABAPENTIN 300 MG CAP PO ×3 (08:04→21:02)
[2017-05-21] MEDS: MULTIVITAMINS/MINERALS THERAP 1 TAB PO (08:04)
[2017-05-21] MEDS: ATENOLOL 25 MG TAB PO (08:05)
[2017-05-21] MEDS: SPIRONOLACTONE 12.5MG PER 1/2 TABLET PO (08:06)
[2017-05-21] MEDS: METHOCARBAMOL 500 MG TAB PO ×3 (08:06→21:03)
[2017-05-21] MEDS: SENNA 8.6 MG TAB (SENOKOT) PO ×2 (08:06→21:03)
[2017-05-21] MEDS: LIDOCAINE 5% (LIDODERM) PATCH TD (08:07)
[2017-05-21] MEDS ORDERED: methylPREDNISolone SUSP 40 MG/ML (DEPO-medrol) VIAL (J1030) As Ordered (11:19)
[2017-05-21] MEDS ORDERED: ISOVUE-M 300 61% 15ML VIAL (Q9967) As Ordered (11:19)
[2017-05-21] MEDS ORDERED: LIDOCAINE 1% SDV INJ 30 ML VIAL As Ordered (11:19)
[2017-05-21] MEDS ORDERED: diazePAM 5 MG TAB As Ordered (11:22)
[2017-05-21] MEDS ORDERED: oxyCODONE 5MG TAB As Ordered (11:22)
[2017-05-21] MEDS: ANEXSIA, NORCO 7.5MG/325MG TABLET(HYDROCODONE/APAP) PO (15:51)
[2017-05-21] MEDS: ATORVASTATIN 20 MG TAB PO (21:02)
[2017-05-21] MEDS: LISINOPRIL 5 MG TAB PO (21:02)
[2017-05-21] MEDS: TRUVADA 200MG/300MG TABLET PO (21:02)
[2017-05-21] MEDS: EFAVIRENZ 600 MG TABLET PO (21:02)
[2017-05-21] MEDS: **NOTE PATIENT COMMENT** MISC XX (21:04)
[2017-05-22] MEDS: SYMBICORT 160/4.5MCG INHALER 6GM INH ×2 (07:12→20:19)
[2017-05-22 08:14] LABS: HEMATOCRIT 41.4 % (42.0-52.0); HEMOGLOBIN 13.3 g/dl (14.0-18.0); MEAN CORPUSCULAR HEMOGLOBIN 29.6 pg (27.0-33.0); MEAN CORPUSCULAR HGB CONC 32.1 g/dl (32.0-36.5); MEAN CORPUSCULAR VOLUME 92.2 fl (80.0-96.0); PLATELET COUNT, AUTOMATED 175 10^3/uL (150-450); RED BLOOD COUNT 4.49 10^6/uL (4.30-6.10); RED CELL DISTRIBUTION WIDTH 14.1 % (11.5-14.5); WHITE BLOOD COUNT 8.4 10^3/uL (4.0-10.0)
[2017-05-22] MEDS: ANEXSIA, NORCO 7.5MG/325MG TABLET(HYDROCODONE/APAP) PO ×2 (08:39→21:11)
[2017-05-22] MEDS: SPIRONOLACTONE 12.5MG PER 1/2 TABLET PO (08:39)
[2017-05-22 08:40] LABS: ANION GAP 5 MEQ/L (8-16); BLOOD UREA NITROGEN 20 MG/DL (7-18); CALCIUM LEVEL 8.8 MG/DL (8.8-10.2); CARBON DIOXIDE LEVEL 27 MEQ/L (21-32); CHLORIDE LEVEL 107 MEQ/L (98-107); CREATININE FOR GFR 0.98 MG/DL (0.70-1.30); GLOMERULAR FILTRATION RATE > 60.0 (>42); GLUCOSE, FASTING 122 MG/DL (83-110); POTASSIUM SERUM 4.4 MEQ/L (3.5-5.1); SODIUM LEVEL 139 MEQ/L (136-145)
[2017-05-22] MEDS: MULTIVITAMINS/MINERALS THERAP 1 TAB PO (08:40)
[2017-05-22] MEDS: GABAPENTIN 300 MG CAP PO ×3 (08:40→20:34)
[2017-05-22] MEDS: ATENOLOL 25 MG TAB PO (08:40)
[2017-05-22] MEDS: TAMSULOSIN 0.4 MG CAP PO (08:40)
[2017-05-22] MEDS: METHOCARBAMOL 500 MG TAB PO ×3 (08:40→20:33)
[2017-05-22] MEDS: LIDOCAINE 5% (LIDODERM) PATCH TD (08:41)
[2017-05-22] MEDS: SENNA 8.6 MG TAB (SENOKOT) PO ×2 (08:41→20:34)
[2017-05-22] MEDS: ASPIRIN 325 MG TAB PO (09:16)
[2017-05-22] MEDS: ENOXAPARIN 40 MG/0.4 ML SYRINGE (J1650) SC (09:16)
[2017-05-22] MEDS: ATORVASTATIN 20 MG TAB PO (20:33)
[2017-05-22] MEDS: TRUVADA 200MG/300MG TABLET PO (20:34)
[2017-05-22] MEDS: LISINOPRIL 5 MG TAB PO (20:34)
[2017-05-22] MEDS: EFAVIRENZ 600 MG TABLET PO (20:34)
[2017-05-22] MEDS: **NOTE PATIENT COMMENT** MISC XX (20:34)
[2017-05-23] MEDS: ANEXSIA, NORCO 7.5MG/325MG TABLET(HYDROCODONE/APAP) PO ×3 (05:23→20:41)
[2017-05-23 06:01] LABS: HEMATOCRIT 40.8 % (42.0-52.0); HEMOGLOBIN 13.1 g/dl (14.0-18.0); MEAN CORPUSCULAR HEMOGLOBIN 29.7 pg (27.0-33.0); MEAN CORPUSCULAR HGB CONC 32.1 g/dl (32.0-36.5); MEAN CORPUSCULAR VOLUME 92.5 fl (80.0-96.0); PLATELET COUNT, AUTOMATED 168 10^3/uL (150-450); RED BLOOD COUNT 4.41 10^6/uL (4.30-6.10); WHITE BLOOD COUNT 7.2 10^3/uL (4.0-10.0)
[2017-05-23 06:21] LABS: ANION GAP 4 MEQ/L (8-16); BLOOD UREA NITROGEN 27 MG/DL (7-18); CALCIUM LEVEL 8.3 MG/DL (8.8-10.2); CARBON DIOXIDE LEVEL 29 MEQ/L (21-32); CHLORIDE LEVEL 108 MEQ/L (98-107); CREATININE FOR GFR 1.07 MG/DL (0.70-1.30); GLOMERULAR FILTRATION RATE > 60.0 (>42); GLUCOSE, FASTING 119 MG/DL (83-110); MAGNESIUM LEVEL 2.5 MG/DL (1.8-2.4); POTASSIUM SERUM 4.3 MEQ/L (3.5-5.1); SODIUM LEVEL 141 MEQ/L (136-145)
[2017-05-23] MEDS: SYMBICORT 160/4.5MCG INHALER 6GM INH ×2 (07:25→23:04)
[2017-05-23] MEDS: ASPIRIN 325 MG TAB PO (08:31)
[2017-05-23] MEDS: SPIRONOLACTONE 12.5MG PER 1/2 TABLET PO (08:31)
[2017-05-23] MEDS: GABAPENTIN 300 MG CAP PO ×3 (08:32→20:45)
[2017-05-23] MEDS: SENNA 8.6 MG TAB (SENOKOT) PO ×2 (08:32→20:45)
[2017-05-23] MEDS: MULTIVITAMINS/MINERALS THERAP 1 TAB PO (08:32)
[2017-05-23] MEDS: LIDOCAINE 5% (LIDODERM) PATCH TD (08:32)
[2017-05-23] MEDS: METHOCARBAMOL 500 MG TAB PO ×3 (08:32→20:44)
[2017-05-23] MEDS: ATENOLOL 25 MG TAB PO (08:32)
[2017-05-23] MEDS: TAMSULOSIN 0.4 MG CAP PO (08:32)
[2017-05-23] MEDS: ENOXAPARIN 40 MG/0.4 ML SYRINGE (J1650) SC (08:33)
[2017-05-23] MEDS: TRUVADA 200MG/300MG TABLET PO (20:44)
[2017-05-23] MEDS: LISINOPRIL 5 MG TAB PO (20:45)
[2017-05-23] MEDS: ATORVASTATIN 20 MG TAB PO (20:45)
[2017-05-23] MEDS: EFAVIRENZ 600 MG TABLET PO (20:45)
[2017-05-23] MEDS: **NOTE PATIENT COMMENT** MISC XX (20:50)
[2017-05-24] MEDS: ANEXSIA, NORCO 7.5MG/325MG TABLET(HYDROCODONE/APAP) PO ×3 (05:04→21:53)
[2017-05-24 06:45] LABS: BASO % 0.5 % (0.0-1.0); EOS # 0.1 10^3/uL (0.0-0.50); EOS % 1.9 % (0.0-3.0); HEMATOCRIT 40.8 % (42.0-52.0); HEMOGLOBIN 13.2 g/dl (14.0-18.0); IMMATURE GRANULOCYTE # 0.1 10^3/uL (0-0); LYMPH # 1.1 10^3/uL (1.5-4.5); LYMPH % 14.4 % (24.0-44.0); MEAN CORPUSCULAR HEMOGLOBIN 29.9 pg (27.0-33.0); MEAN CORPUSCULAR HGB CONC 32.4 g/dl (32.0-36.5); MEAN CORPUSCULAR VOLUME 92.5 fl (80.0-96.0); MONO # 0.6 10^3/uL (0.0-0.8); MONO % 8.7 % (0.0-5.0); NEUTROPHILS # 5.4 10^3/uL (1.8-7.7); NEUTROPHILS % 73.5 % (36.0-66.0); PLATELET COUNT, AUTOMATED 179 10^3/uL (150-450); RED BLOOD COUNT 4.41 10^6/uL (4.30-6.10); WHITE BLOOD COUNT 7.3 10^3/uL (4.0-10.0)
[2017-05-24 07:10] LABS: ANION GAP 5 MEQ/L (8-16); BLOOD UREA NITROGEN 24 MG/DL (7-18); CALCIUM LEVEL 8.9 MG/DL (8.8-10.2); CARBON DIOXIDE LEVEL 28 MEQ/L (21-32); CHLORIDE LEVEL 108 MEQ/L (98-107); CREATININE FOR GFR 1.11 MG/DL (0.70-1.30); GLOMERULAR FILTRATION RATE > 60.0 (>42); GLUCOSE, FASTING 111 MG/DL (83-110); POTASSIUM SERUM 4.2 MEQ/L (3.5-5.1); SODIUM LEVEL 141 MEQ/L (136-145)
[2017-05-24] MEDS: ENOXAPARIN 40 MG/0.4 ML SYRINGE (J1650) SC (08:49)
[2017-05-24] MEDS: SPIRONOLACTONE 12.5MG PER 1/2 TABLET PO (08:49)
[2017-05-24] MEDS: ASPIRIN 325 MG TAB PO (08:49)
[2017-05-24] MEDS: SENNA 8.6 MG TAB (SENOKOT) PO ×2 (08:49→21:51)
[2017-05-24] MEDS: TAMSULOSIN 0.4 MG CAP PO (08:50)
[2017-05-24] MEDS: MULTIVITAMINS/MINERALS THERAP 1 TAB PO (08:50)
[2017-05-24] MEDS: LIDOCAINE 5% (LIDODERM) PATCH TD (08:50)
[2017-05-24] MEDS: ATENOLOL 25 MG TAB PO (08:50)
[2017-05-24] MEDS: GABAPENTIN 300 MG CAP PO ×3 (08:50→21:52)
[2017-05-24] MEDS: METHOCARBAMOL 500 MG TAB PO ×3 (08:50→21:51)
[2017-05-24] MEDS: SYMBICORT 160/4.5MCG INHALER 6GM INH ×2 (11:26→21:21)
[2017-05-24] MEDS: **NOTE PATIENT COMMENT** MISC XX (21:00)
[2017-05-24] MEDS: ATORVASTATIN 20 MG TAB PO (21:51)
[2017-05-24] MEDS: EFAVIRENZ 600 MG TABLET PO (21:51)
[2017-05-24] MEDS: LISINOPRIL 5 MG TAB PO (21:52)
[2017-05-24] MEDS: TRUVADA 200MG/300MG TABLET PO (21:53)
[2017-05-25 06:03] LABS: BASO # 0.1 10^3/uL (0.0-0.2); BASO % 0.7 % (0.0-1.0); EOS # 0.1 10^3/uL (0.0-0.50); EOS % 1.8 % (0.0-3.0); HEMATOCRIT 39.1 % (42.0-52.0); HEMOGLOBIN 12.9 g/dl (14.0-18.0); IMMATURE GRANULOCYTE # 0.1 10^3/uL (0-0); IMMATURE GRANULOCYTE % 0.8 % (0-0); LYMPH # 1.2 10^3/uL (1.5-4.5); LYMPH % 15.7 % (24.0-44.0); MEAN CORPUSCULAR HEMOGLOBIN 30.6 pg (27.0-33.0); MEAN CORPUSCULAR VOLUME 92.7 fl (80.0-96.0); MONO # 0.7 10^3/uL (0.0-0.8); NEUTROPHILS # 5.2 10^3/uL (1.8-7.7); PLATELET COUNT, AUTOMATED 162 10^3/uL (150-450); RED BLOOD COUNT 4.22 10^6/uL (4.30-6.10); RED CELL DISTRIBUTION WIDTH 14.1 % (11.5-14.5); WHITE BLOOD COUNT 7.3 10^3/uL (4.0-10.0)
[2017-05-25 06:25] LABS: ANION GAP 5 MEQ/L (8-16); BLOOD UREA NITROGEN 25 MG/DL (7-18); CALCIUM LEVEL 8.8 MG/DL (8.8-10.2); CARBON DIOXIDE LEVEL 30 MEQ/L (21-32); CHLORIDE LEVEL 107 MEQ/L (98-107); CREATININE FOR GFR 1.06 MG/DL (0.70-1.30); GLOMERULAR FILTRATION RATE > 60.0 (>42); GLUCOSE, FASTING 104 MG/DL (83-110); POTASSIUM SERUM 4.5 MEQ/L (3.5-5.1); SODIUM LEVEL 142 MEQ/L (136-145)
[2017-05-25] MEDS: ANEXSIA, NORCO 7.5MG/325MG TABLET(HYDROCODONE/APAP) PO ×2 (07:53→14:06)
[2017-05-25] MEDS: ATENOLOL 25 MG TAB PO (07:55)
[2017-05-25] MEDS: SENNA 8.6 MG TAB (SENOKOT) PO ×2 (07:56→21:27)
[2017-05-25] MEDS: MULTIVITAMINS/MINERALS THERAP 1 TAB PO (07:56)
[2017-05-25] MEDS: TAMSULOSIN 0.4 MG CAP PO (07:56)
[2017-05-25] MEDS: GABAPENTIN 300 MG CAP PO ×3 (07:57→21:26)
[2017-05-25] MEDS: METHOCARBAMOL 500 MG TAB PO ×2 (07:57→16:05)
[2017-05-25] MEDS: ENOXAPARIN 40 MG/0.4 ML SYRINGE (J1650) SC (07:57)
[2017-05-25] MEDS: ASPIRIN 325 MG TAB PO (07:57)
[2017-05-25] MEDS: SPIRONOLACTONE 12.5MG PER 1/2 TABLET PO (07:57)
[2017-05-25] MEDS: LIDOCAINE 5% (LIDODERM) PATCH TD (07:58)
[2017-05-25] MEDS: SYMBICORT 160/4.5MCG INHALER 6GM INH ×2 (08:22→20:02)
[2017-05-25] MEDS: **NOTE PATIENT COMMENT** MISC XX (21:00)
[2017-05-25] MEDS: ANALGESIC BALM CRM 120 GM TOP (21:25)
[2017-05-25] MEDS: METHOCARBAMOL 750 MG TAB PO (21:26)
[2017-05-25] MEDS: TRUVADA 200MG/300MG TABLET PO (21:27)
[2017-05-25] MEDS: LISINOPRIL 5 MG TAB PO (21:27)
[2017-05-25] MEDS: EFAVIRENZ 600 MG TABLET PO (21:27)
[2017-05-25] MEDS: ATORVASTATIN 20 MG TAB PO (21:27)
[2017-05-25] MEDS: oxyCODONE 5MG TAB PO (21:28)
[2017-05-26 06:03] LABS: BASO # 0.1 10^3/uL (0.0-0.2); BASO % 0.7 % (0.0-1.0); EOS # 0.1 10^3/uL (0.0-0.50); EOS % 1.2 % (0.0-3.0); HEMATOCRIT 40.2 % (42.0-52.0); HEMOGLOBIN 13.4 g/dl (14.0-18.0); IMMATURE GRANULOCYTE # 0.1 10^3/uL (0-0); IMMATURE GRANULOCYTE % 0.9 % (0-0); LYMPH # 1.1 10^3/uL (1.5-4.5); LYMPH % 15.3 % (24.0-44.0); MEAN CORPUSCULAR HEMOGLOBIN 30.3 pg (27.0-33.0); MEAN CORPUSCULAR HGB CONC 33.3 g/dl (32.0-36.5); MONO # 0.6 10^3/uL (0.0-0.8); MONO % 8.5 % (0.0-5.0); NEUTROPHILS # 5.5 10^3/uL (1.8-7.7); NEUTROPHILS % 73.4 % (36.0-66.0); PLATELET COUNT, AUTOMATED 173 10^3/uL (150-450); RED BLOOD COUNT 4.42 10^6/uL (4.30-6.10); WHITE BLOOD COUNT 7.4 10^3/uL (4.0-10.0)
[2017-05-26] MEDS: oxyCODONE 5MG TAB PO ×3 (06:08→21:42)
[2017-05-26 06:22] LABS: ANION GAP 6 MEQ/L (8-16); BLOOD UREA NITROGEN 26 MG/DL (7-18); CALCIUM LEVEL 8.8 MG/DL (8.8-10.2); CARBON DIOXIDE LEVEL 28 MEQ/L (21-32); CHLORIDE LEVEL 107 MEQ/L (98-107); CREATININE FOR GFR 1.04 MG/DL (0.70-1.30); GLOMERULAR FILTRATION RATE > 60.0 (>42); GLUCOSE, FASTING 117 MG/DL (83-110); SODIUM LEVEL 141 MEQ/L (136-145)
[2017-05-26] MEDS: SYMBICORT 160/4.5MCG INHALER 6GM INH ×2 (07:23→21:08)
[2017-05-26] MEDS: MULTIVITAMINS/MINERALS THERAP 1 TAB PO (10:15)
[2017-05-26] MEDS: GABAPENTIN 300 MG CAP PO ×3 (10:15→21:43)
[2017-05-26] MEDS: TAMSULOSIN 0.4 MG CAP PO (10:15)
[2017-05-26] MEDS: SENNA 8.6 MG TAB (SENOKOT) PO ×2 (10:15→21:42)
[2017-05-26] MEDS: METHOCARBAMOL 750 MG TAB PO ×3 (10:15→21:43)
[2017-05-26] MEDS: ASPIRIN 325 MG TAB PO (10:15)
[2017-05-26] MEDS: SPIRONOLACTONE 12.5MG PER 1/2 TABLET PO (10:15)
[2017-05-26] MEDS: ENOXAPARIN 40 MG/0.4 ML SYRINGE (J1650) SC (10:16)
[2017-05-26] MEDS: LIDOCAINE 5% (LIDODERM) PATCH TD (10:16)
[2017-05-26] MEDS: ANALGESIC BALM CRM 120 GM TOP ×3 (10:16→21:43)
[2017-05-26] MEDS: ATENOLOL 25 MG TAB PO (10:18)
[2017-05-26] MEDS: **NOTE PATIENT COMMENT** MISC XX (21:00)
[2017-05-26] MEDS: LISINOPRIL 5 MG TAB PO (21:42)
[2017-05-26] MEDS: ATORVASTATIN 20 MG TAB PO (21:42)
[2017-05-26] MEDS: TRUVADA 200MG/300MG TABLET PO (21:43)
[2017-05-26] MEDS: EFAVIRENZ 600 MG TABLET PO (21:44)
[2017-05-27] MEDS: oxyCODONE 5MG TAB PO ×3 (06:00→21:46)
[2017-05-27 06:07] LABS: BASO # 0.1 10^3/uL (0.0-0.2); BASO % 0.7 % (0.0-1.0); EOS # 0.1 10^3/uL (0.0-0.50); EOS % 1.6 % (0.0-3.0); HEMOGLOBIN 13.2 g/dl (14.0-18.0); IMMATURE GRANULOCYTE # 0.1 10^3/uL (0-0); IMMATURE GRANULOCYTE % 1.2 % (0-0); LYMPH # 1.2 10^3/uL (1.5-4.5); LYMPH % 17.8 % (24.0-44.0); MEAN CORPUSCULAR HEMOGLOBIN 30.3 pg (27.0-33.0); MEAN CORPUSCULAR VOLUME 91.7 fl (80.0-96.0); MONO # 0.7 10^3/uL (0.0-0.8); MONO % 10.5 % (0.0-5.0); NEUTROPHILS # 4.7 10^3/uL (1.8-7.7); NEUTROPHILS % 68.2 % (36.0-66.0); PLATELET COUNT, AUTOMATED 177 10^3/uL (150-450); RED BLOOD COUNT 4.36 10^6/uL (4.30-6.10); RED CELL DISTRIBUTION WIDTH 14.2 % (11.5-14.5)
[2017-05-27 06:23] LABS: ANION GAP 7 MEQ/L (8-16); BLOOD UREA NITROGEN 28 MG/DL (7-18); CALCIUM LEVEL 8.8 MG/DL (8.8-10.2); CARBON DIOXIDE LEVEL 27 MEQ/L (21-32); CHLORIDE LEVEL 109 MEQ/L (98-107); CREATININE FOR GFR 1.04 MG/DL (0.70-1.30); GLOMERULAR FILTRATION RATE > 60.0 (>42); GLUCOSE, FASTING 115 MG/DL (83-110); POTASSIUM SERUM 4.3 MEQ/L (3.5-5.1); SODIUM LEVEL 143 MEQ/L (136-145)
[2017-05-27] MEDS: SYMBICORT 160/4.5MCG INHALER 6GM INH ×2 (08:07→21:03)
[2017-05-27] MEDS: ATENOLOL 25 MG TAB PO (09:00)
[2017-05-27] MEDS: SPIRONOLACTONE 12.5MG PER 1/2 TABLET PO (09:22)
[2017-05-27] MEDS: TAMSULOSIN 0.4 MG CAP PO (09:22)
[2017-05-27] MEDS: METHOCARBAMOL 750 MG TAB PO ×3 (09:23→21:45)
[2017-05-27] MEDS: SENNA 8.6 MG TAB (SENOKOT) PO ×2 (09:23→21:45)
[2017-05-27] MEDS: ASPIRIN 325 MG TAB PO (09:23)
[2017-05-27] MEDS: MULTIVITAMINS/MINERALS THERAP 1 TAB PO (09:23)
[2017-05-27] MEDS: GABAPENTIN 300 MG CAP PO ×3 (09:23→21:45)
[2017-05-27] MEDS: ENOXAPARIN 40 MG/0.4 ML SYRINGE (J1650) SC (09:24)
[2017-05-27] MEDS: ANALGESIC BALM CRM 120 GM TOP ×3 (09:25→21:47)
[2017-05-27] MEDS: LIDOCAINE 5% (LIDODERM) PATCH TD (09:26)
[2017-05-27] MEDS: ATORVASTATIN 20 MG TAB PO (21:44)
[2017-05-27] MEDS: TRUVADA 200MG/300MG TABLET PO (21:45)
[2017-05-27] MEDS: LISINOPRIL 5 MG TAB PO (21:46)
[2017-05-27] MEDS: EFAVIRENZ 600 MG TABLET PO (21:46)
[2017-05-27] MEDS: **NOTE PATIENT COMMENT** MISC XX (21:47)
[2017-05-28] MEDS: MOM 30ML SUSPENSION UDC PO (05:49)
[2017-05-28] MEDS: oxyCODONE 5MG TAB PO ×3 (05:49→21:31)
[2017-05-28] MEDS: METHOCARBAMOL 750 MG TAB PO ×3 (08:25→21:31)
[2017-05-28] MEDS: GABAPENTIN 300 MG CAP PO ×3 (08:25→21:30)
[2017-05-28] MEDS: ASPIRIN 325 MG TAB PO (08:25)
[2017-05-28] MEDS: TAMSULOSIN 0.4 MG CAP PO (08:25)
[2017-05-28] MEDS: SPIRONOLACTONE 12.5MG PER 1/2 TABLET PO (08:25)
[2017-05-28] MEDS: MULTIVITAMINS/MINERALS THERAP 1 TAB PO (08:25)
[2017-05-28] MEDS: SENNA 8.6 MG TAB (SENOKOT) PO ×2 (08:25→21:31)
[2017-05-28] MEDS: LIDOCAINE 5% (LIDODERM) PATCH TD (08:26)
[2017-05-28] MEDS: ATENOLOL 25 MG TAB PO (08:26)
[2017-05-28] MEDS: ENOXAPARIN 40 MG/0.4 ML SYRINGE (J1650) SC (08:26)
[2017-05-28] MEDS: ANALGESIC BALM CRM 120 GM TOP ×3 (08:27→21:31)
[2017-05-28] MEDS: SYMBICORT 160/4.5MCG INHALER 6GM INH ×2 (08:30→21:48)
[2017-05-28] MEDS: LISINOPRIL 5 MG TAB PO (21:30)
[2017-05-28] MEDS: ATORVASTATIN 20 MG TAB PO (21:30)
[2017-05-28] MEDS: TRUVADA 200MG/300MG TABLET PO (21:31)
[2017-05-28] MEDS: **NOTE PATIENT COMMENT** MISC XX (21:31)
[2017-05-28] MEDS: EFAVIRENZ 600 MG TABLET PO (21:31)
[2017-05-29] MEDS: oxyCODONE 5MG TAB PO ×3 (06:21→21:09)
[2017-05-29] MEDS: SYMBICORT 160/4.5MCG INHALER 6GM INH ×2 (08:06→21:38)
[2017-05-29] MEDS: SENNA 8.6 MG TAB (SENOKOT) PO ×2 (08:51→21:10)
[2017-05-29] MEDS: MULTIVITAMINS/MINERALS THERAP 1 TAB PO (08:51)
[2017-05-29] MEDS: TAMSULOSIN 0.4 MG CAP PO (08:51)
[2017-05-29] MEDS: ASPIRIN 325 MG TAB PO (08:51)
[2017-05-29] MEDS: METHOCARBAMOL 750 MG TAB PO ×3 (08:51→21:10)
[2017-05-29] MEDS: SPIRONOLACTONE 12.5MG PER 1/2 TABLET PO (08:51)
[2017-05-29] MEDS: GABAPENTIN 300 MG CAP PO ×3 (08:52→21:10)
[2017-05-29] MEDS: LIDOCAINE 5% (LIDODERM) PATCH TD (08:52)
[2017-05-29] MEDS: ENOXAPARIN 40 MG/0.4 ML SYRINGE (J1650) SC (08:52)
[2017-05-29] MEDS: ANALGESIC BALM CRM 120 GM TOP ×3 (08:52→21:10)
[2017-05-29] MEDS: ATENOLOL 25 MG TAB PO (08:52)
[2017-05-29] MEDS: **NOTE PATIENT COMMENT** MISC XX (21:00)
[2017-05-29] MEDS: EFAVIRENZ 600 MG TABLET PO (21:09)
[2017-05-29] MEDS: LISINOPRIL 5 MG TAB PO (21:09)
[2017-05-29] MEDS: TRUVADA 200MG/300MG TABLET PO (21:10)
[2017-05-29] MEDS: ATORVASTATIN 20 MG TAB PO (21:10)
[2017-05-30] MEDS: oxyCODONE 5MG TAB PO (06:13)
[2017-05-30] MEDS: ENOXAPARIN 40 MG/0.4 ML SYRINGE (J1650) SC (08:26)
[2017-05-30] MEDS: LIDOCAINE 5% (LIDODERM) PATCH TD (08:26)
[2017-05-30] MEDS: MULTIVITAMINS/MINERALS THERAP 1 TAB PO (08:26)
[2017-05-30] MEDS: GABAPENTIN 300 MG CAP PO (08:26)
[2017-05-30] MEDS: ATENOLOL 25 MG TAB PO (08:27)
[2017-05-30] MEDS: SPIRONOLACTONE 12.5MG PER 1/2 TABLET PO (08:27)
[2017-05-30] MEDS: METHOCARBAMOL 750 MG TAB PO (08:27)
[2017-05-30] MEDS: ASPIRIN 325 MG TAB PO (08:27)
[2017-05-30] MEDS: TAMSULOSIN 0.4 MG CAP PO (08:27)
[2017-05-30] MEDS: SENNA 8.6 MG TAB (SENOKOT) PO (08:27)
[2017-05-30] MEDS: ANALGESIC BALM CRM 120 GM TOP (08:28)
[2017-05-30] MEDS: SYMBICORT 160/4.5MCG INHALER 6GM INH (08:57)
== END 2017-05-30 10:00 | disposition home health service (06) | DRG 551 ==
LOC: M ED 13:02 → M ED INP 18:02 → M MSPAV 23:35
PROC: 3E0R3NZ Introduction of Analgesics, Hypnotics, Sedatives into Spinal Canal, Percutaneous Approach (ICD-10-PCS; principal; 2017-05-21)
DX: M43.07 Spondylolysis, lumbosacral region (principal); B20 Human immunodeficiency virus [HIV] disease; G62.9 Polyneuropathy, unspecified; I25.10 Atherosclerotic heart disease of native coronary artery without angina pectoris; I11.9 Hypertensive heart disease without heart failure; G47.33 Obstructive sleep apnea (adult) (pediatric); I50.9 Heart failure, unspecified; N28.1 Cyst of kidney, acquired; Z79.899 Other long term (current) drug therapy; Z79.82 Long term (current) use of aspirin; N40.0 Benign prostatic hyperplasia without lower urinary tract symptoms; E78.5 Hyperlipidemia, unspecified; I25.2 Old myocardial infarction

== ENCOUNTER → 2017-10-04 | Outpatient (REF) | payer OTHER ==
[2017-10-04 18:49] LABS: ESTIMATED AVERAGE GLUCOSE 137 MG/DL (60-110); HEMOGLOBIN A1c 6.4 %
[2017-10-04 18:53] LABS: ALBUMIN 3.9 GM/DL (3.2-5.2); ALBUMIN/GLOBULIN RATIO 1.18 (1.00-1.93); ALKALINE PHOSPHATASE 115 U/L (45-117); ALT/SGPT 24 U/L (12-78); ANION GAP 7 MEQ/L (8-16); AST/SGOT 16 U/L (7-37); BILIRUBIN,TOTAL 0.5 MG/DL (0.2-1.0); BLOOD UREA NITROGEN 15 MG/DL (7-18); CALCIUM LEVEL 8.7 MG/DL (8.8-10.2); CARBON DIOXIDE LEVEL 27 MEQ/L (21-32); CHLORIDE LEVEL 110 MEQ/L (98-107); CHOLESTEROL LEVEL 138 MG/DL (<200); GLOMERULAR FILTRATION RATE 57.4 (>42); GLUCOSE, FASTING 105 MG/DL (70-100); HDL CHOLESTEROL 46 MG/DL (>40); LDL CHOLESTEROL 76.6 MG/DL (<100); NON-HDL-C 92 MG/DL; POTASSIUM SERUM 4.3 MEQ/L (3.5-5.1); SODIUM LEVEL 144 MEQ/L (136-145); TOTAL PROTEIN 7.2 GM/DL (6.4-8.2); TRIGLYCERIDES LEVEL 77 MG/DL (<150)
[2017-10-06 14:10] LABS: % CD8 Pos Lymph 56.9 % (12.0-35.5); %CD4 Pos Lymphs 27.1 % (30.8-58.5); ABS Eosinophils 0.1 x10E3/uL (0.0-0.4); ABS Lymphs 1.2 x10E3/uL (0.7-3.1); ABS Monocytes 0.5 x10E3/uL (0.1-0.9); ABS Neutophils 5.1 x10E3/uL (1.4-7.0); Abs CD4 Helper 325 /uL (359-1519); Abs CD8 Suppres 683 /uL (109-897); CD4/CD8 Ratio 0.48 (0.92-3.72); Eosinophils 1 % (Not Estab.); HCT 41.6 % (37.5-51.0); HGB 13.3 g/dL (13.0-17.7); Immature Grans 0 % (Not Estab.); Lymphocytes 17 % (Not Estab.); MCH 30.4 pg (26.6-33.0); MCV 95 fL (79-97); Monocytes 7 % (Not Estab.); Neutrophils 75 % (Not Estab.); Platelets 151 x10E3/uL (150-379); RBC 4.38 x10E6/uL (4.14-5.80); RDW 15.2 % (12.3-15.4); WBC 6.9 x10E3/uL (3.4-10.8)
[2017-10-09 00:07] LABS: HIV-1 RNA PCR QUANT 2 LC550285 <20 copies/mL (.)
== END ==
LOC: M SFHCPLAZ 14:10
DX: B20 Human immunodeficiency virus [HIV] disease (principal); E78.00 Pure hypercholesterolemia, unspecified

== ENCOUNTER → 2018-02-26 | Outpatient (REF) | payer OTHER ==
[2018-02-26 16:24] LABS: AMORPHOUS SEDIMENT LARGE (NEGATIVE); APPEARANCE, URINE CLOUDY (CLEAR); BACTERIA, URINE AUTO NEGATIVE (NEGATIVE); BILIRUBIN, URINE AUTO NEGATIVE (NEGATIVE); BLOOD, URINE BLOOD NEGATIVE (NEGATIVE); COLOR, URINE YELLOW (YELLOW); GLUCOSE, URINE (UA) AUTO NEGATIVE (NEGATIVE); KETONE, URINE AUTO NEGATIVE (NEGATIVE); LEUKOCYTE ESTERASE, URINE AUTO NEGATIVE (NEGATIVE); MUCUS, URINE SMALL (NEGATIVE); NITRITE, URINE AUTO NEGATIVE (NEGATIVE); PROTEIN, URINE AUTO 2+ mg/dL (NEGATIVE); RBC, URINE AUTO 1 /HPF (0-3); SPECIFIC GRAVITY URINE AUTO 1.019 (1.002-1.035); SQUAMOUS EPITHELIAL CELL UR AU 1 /HPF (0-6); UROBILINOGEN, URINE AUTO 0.2 mg/dL (0.0-2.0); WBC, URINE AUTO 2 /HPF (0-3)
[2018-02-26 21:52] LABS: ALBUMIN/GLOBULIN RATIO 1.21 (1.00-1.93); ALKALINE PHOSPHATASE 117 U/L (45-117); ALT/SGPT 23 U/L (12-78); ANION GAP 8 MEQ/L (8-16); AST/SGOT 18 U/L (7-37); BILIRUBIN,TOTAL 0.6 MG/DL (0.2-1.0); BLOOD UREA NITROGEN 16 MG/DL (7-18); CALCIUM LEVEL 9.2 MG/DL (8.8-10.2); CARBON DIOXIDE LEVEL 28 MEQ/L (21-32); CHLORIDE LEVEL 109 MEQ/L (98-107); CREATININE FOR GFR 1.47 MG/DL (0.70-1.30); GLOMERULAR FILTRATION RATE 49.9 (>42); GLUCOSE, FASTING 111 MG/DL (70-100); POTASSIUM SERUM 4.2 MEQ/L (3.5-5.1); PSA SCREENING 5.64 NG/ML (< 4.0); SODIUM LEVEL 145 MEQ/L (136-145); TOTAL PROTEIN 7.3 GM/DL (6.4-8.2)
[2018-02-26 23:41] LABS: ESTIMATED AVERAGE GLUCOSE 131 MG/DL (60-110); HEMOGLOBIN A1c 6.2 %
[2018-03-02 00:06] LABS: % CD8 Pos Lymph 56.6 % (12.0-35.5); %CD4 Pos Lymphs 31.1 % (30.8-58.5); ABS Eosinophils 0.1 x10E3/uL (0.0-0.4); ABS Lymphs 1.3 x10E3/uL (0.7-3.1); ABS Monocytes 0.8 x10E3/uL (0.1-0.9); ABS Neutophils 6.1 x10E3/uL (1.4-7.0); Abs CD4 Helper 404 /uL (359-1519); Abs CD8 Suppres 736 /uL (109-897); CD4/CD8 Ratio 0.55 (0.92-3.72); Eosinophils 2 % (Not Estab.); HCT 42.4 % (37.5-51.0); HGB 13.8 g/dL (13.0-17.7); HIV-1 RNA PCR QUANT 2 LC550285 <20 copies/mL (.); Immature Grans 0 % (Not Estab.); Lymphocytes 15 % (Not Estab.); MCH 30.8 pg (26.6-33.0); MCHC 32.5 g/dL (31.5-35.7); MCV 95 fL (79-97); Monocytes 9 % (Not Estab.); Neutrophils 73 % (Not Estab.); Platelets 176 x10E3/uL (150-379); RBC 4.48 x10E6/uL (4.14-5.80); WBC 8.3 x10E3/uL (3.4-10.8)
== END ==
LOC: M SFHCPLAZ 13:26
DX: B20 Human immunodeficiency virus [HIV] disease (principal); R73.02 Impaired glucose tolerance (oral)

== ENCOUNTER → 2018-08-08 | Outpatient (REF) | payer OTHER ==
[~2018-08-08] MED LIST changes: +ACET-716 PO; +ALBU17IN INH; +ASPI-255 PO; +ATEN25TA PO; +ATOR40TA75 PO; +ATRIPLA; +ATRIPLA PO; +CO QCAP PO; +CO-QCAP PO; +FLOM0.4C39 PO; +GABA-843 PO; +HYDR-3716 PO; -ISOVUE-M 300 61% 15ML VIAL (Q9967) As Ordered; +LISI-542 PO; +METH1TAB40 PO; +PATIENT COMMENT; +SPIR-10 PO; +SYMB16INH INH; +TAMSULOSIN; +VITMTA PO; -diazePAM 5 MG TAB As Ordered; -methylPREDNISolone SUSP 40 MG/ML (DEPO-medrol) VIAL (J1030) As Ordered; -oxyCODONE 5MG TAB As Ordered
[2018-08-08 16:30] LABS: ALBUMIN 3.8 GM/DL (3.2-5.2); BILIRUBIN,TOTAL 0.6 MG/DL (0.2-1.0); CALCIUM LEVEL 8.7 MG/DL (8.8-10.2); CHOLESTEROL RISK RATIO 3.173 (<5); CREATININE FOR GFR 1.46 MG/DL (0.70-1.30); GLOMERULAR FILTRATION RATE 50.2 (>42); POTASSIUM SERUM 4.3 MEQ/L (3.5-5.1)
[2018-08-08 16:47] LABS: HEMOGLOBIN A1c 6.4 %
[2018-08-10 15:33] LABS: % CD8 Pos Lymph 56.8 % (12.0-35.5); %CD4 Pos Lymphs 25.5 % (30.8-58.5); ABS Basophils 0.1 x10E3/uL (0.0-0.2); ABS Eosinophils 0.1 x10E3/uL (0.0-0.4); ABS Lymphs 1.4 x10E3/uL (0.7-3.1); ABS Monocytes 0.6 x10E3/uL (0.1-0.9); ABS Neutophils 5.5 x10E3/uL (1.4-7.0); Abs CD4 Helper 357 /uL (359-1519); Abs CD8 Suppres 795 /uL (109-897); CD4/CD8 Ratio 0.45 (0.92-3.72); Eosinophils 2 % (Not Estab.); HCT 43.3 % (37.5-51.0); Immature Grans 0 % (Not Estab.); Lymphocytes 18 % (Not Estab.); MCH 30.8 pg (26.6-33.0); MCHC 32.3 g/dL (31.5-35.7); MCV 95 fL (79-97); Monocytes 7 % (Not Estab.); Neutrophils 72 % (Not Estab.); Platelets 194 x10E3/uL (150-379); RBC 4.55 x10E6/uL (4.14-5.80); RDW 16.5 % (12.3-15.4); WBC 7.7 x10E3/uL (3.4-10.8)
[2018-08-13 00:07] LABS: HIV-1 RNA PCR QUANT 2 LC550285 <20 copies/mL (.)
== END ==
LOC: M SFHCPLAZ 14:06
PROVIDERS: ATTEND Internal Medicine Infectious Disease
DX: B20 Human immunodeficiency virus [HIV] disease (principal); E78.00 Pure hypercholesterolemia, unspecified; R73.02 Impaired glucose tolerance (oral)

== ENCOUNTER → 2019-02-13 | Outpatient (REF) | payer OTHER ==
[2019-02-13 15:58] LABS: ALBUMIN 3.7 GM/DL (3.2-5.2); BILIRUBIN,TOTAL 0.5 MG/DL (0.2-1.0); CALCIUM LEVEL 9.2 MG/DL (8.8-10.2); CHOLESTEROL RISK RATIO 2.923 (<5); CREATININE FOR GFR 1.41 MG/DL (0.70-1.30); GLOMERULAR FILTRATION RATE 52.2 (>42); POTASSIUM SERUM 4.3 MEQ/L (3.5-5.1); PROSTATIC SPECIFIC AG MONITOR 6.04 NG/ML (< 4.00); TOTAL PROTEIN 7.5 GM/DL (6.4-8.2)
[2019-02-13 16:07] LABS: HEMOGLOBIN A1c 6.2 %
== END ==
LOC: M SFHCPLAZ 13:15
PROVIDERS: ATTEND Internal Medicine Infectious Disease
DX: B20 Human immunodeficiency virus [HIV] disease (principal); R73.02 Impaired glucose tolerance (oral); R97.20 Elevated prostate specific antigen [PSA]

== ENCOUNTER → 2020-03-18 | Outpatient (REF) | payer OTHER ==
[2020-03-18 16:07] LABS: HEMOGLOBIN A1c 5.7 %
[2020-03-18 16:13] LABS: ALBUMIN 3.7 GM/DL (3.2-5.2); BILIRUBIN,TOTAL 0.9 MG/DL (0.2-1.0); CALCIUM LEVEL 9.1 MG/DL (8.8-10.2); CHOLESTEROL RISK RATIO 3.046 (<5); CREATININE FOR GFR 1.3 MG/DL (0.70-1.30); GLOMERULAR FILTRATION RATE 57.1 (>42); POTASSIUM SERUM 4.5 MEQ/L (3.5-5.1); TOTAL PROTEIN 6.9 GM/DL (6.4-8.2)
[2020-03-21 17:07] LABS: % CD8 Pos Lymph 57.8 % (12.0-35.5); %CD4 Pos Lymphs 28.1 % (30.8-58.5); ABS Basophils 0.1 x10E3/uL (0.0-0.2); ABS Eosinophils 0.1 x10E3/uL (0.0-0.4); ABS Lymphs 0.7 x10E3/uL (0.7-3.1); ABS Monocytes 0.5 x10E3/uL (0.1-0.9); ABS Neutophils 6.4 x10E3/uL (1.4-7.0); Abs CD4 Helper 197 /uL (359-1519); Abs CD8 Suppres 405 /uL (109-897); CD4/CD8 Ratio 0.49 (0.92-3.72); Eosinophils 1 % (Not Estab.); HGB 13.2 g/dL (13.0-17.7); HIV-1 RNA PCR QUANT 2 LC550285 20 copies/mL (.); HIV-1 RNA PCR QUANT 3 LC550285 1.301 (.); Imm ABS Grans 0.1 x10E3/uL (0.0-0.1); Immature Grans 1 % (Not Estab.); Lymphocytes 9 % (Not Estab.); MCH 31.4 pg (26.6-33.0); MCHC 32.2 g/dL (31.5-35.7); MCV 97 fL (79-97); Monocytes 7 % (Not Estab.); Neutrophils 81 % (Not Estab.); Platelets 186 x10E3/uL (150-450); RBC 4.21 x10E6/uL (4.14-5.80); RDW 14.6 % (11.6-15.4); WBC 7.9 x10E3/uL (3.4-10.8)
== END ==
LOC: M SFHCPLAZ 12:47
PROVIDERS: ATTEND Internal Medicine Infectious Disease
DX: N40.0 Benign prostatic hyperplasia without lower urinary tract symptoms (principal); E78.00 Pure hypercholesterolemia, unspecified; B20 Human immunodeficiency virus [HIV] disease
CPT/HCPCS: 36415; 80053; 80061; 83036; 86360; 87536; G0103

== ENCOUNTER 2020-12-06 14:00 | Emergency (ER) | payer OTHER ==
[~2020-12-06 14:00] MED LIST changes: +GABA-282 PO; -GABA-843 PO; -LISI-542 PO; +LISI-898 PO; +METH-1164 PO; -METH1TAB40 PO
[2020-12-06 17:53] LABS: RSV AMPLIFICATION NEGATIVE (NEGATIVE)
== END 2020-12-06 18:37 | disposition expired ==
LOC: EDUNIT# 14:00 → EDBD 14:00 → M ED 14:00
DX: I46.9 Cardiac arrest, cause unspecified (principal); I25.10 Atherosclerotic heart disease of native coronary artery without angina pectoris; I10 Essential (primary) hypertension; J44.9 Chronic obstructive pulmonary disease, unspecified; E78.5 Hyperlipidemia, unspecified